=== PATIENT | female | born 1955 | race Caucasian/White ===

== ENCOUNTER 2017-01-21 11:44 | Emergency (ER) | payer OTHER ==
[2017-01-21 11:51] VITALS: BMI 34.0
[2017-01-21] MEDS ORDERED: KETOROLAC TROMETHAMINE 30 MG/1 ML VIAL ONE (12:07)
--- NOTE | 2017-01-21 12:08 | PDOC ---
History of Present Illness - General Chief Complaint: Pain, Acute Stated Complaint: BACK PAIN Time Seen by Provider: 01/21/17 12:08 History Source: Patient Exam Limitations: No Limitations - History of Present Illness Initial Comments: 01/21/17 12:32 Chief complaint: Right flank pain Patient is a 61-year-old female with a history of NIDDM, kidney stones who last had a kidney stone sometime last year who states sudden onset of right flank pain at 4:30 AM. He states it feels similar. Some nausea, no vomiting, no fever. Chest pain or shortness of breath. GENERAL/CONSTITUTIONAL: No fever, weakness. dizziness HEAD, EYES, EARS, NOSE AND THROAT: No change in vision. No ear pain or discharge. No sore throat. CARDIOVASCULAR: No chest pain RESPIRATORY: No shortness of breath or cough GASTROINTESTINAL: No pain, nausea, vomiting, diarrhea or constipation GENITOURINARY: +dysuria, + flank MUSCULOSKELETAL: No neck or back pain SKIN: No rash NEUROLOGIC: No headache, vertigo, loss of consciousness, or loss of sensation. GENERAL: The patient is awake, alert, and fully oriented, in no acute distress. HEAD: Normal with no signs of trauma. EYES: Pupils equal, round and reactive to light, sclera anicteric, conjunctiva clear. ENT: pharynx: no erythema, no exudate, uvula midline NECK: supple CHEST: clear, nontender, rr ABD: soft, nontender Back: Right CVAT EXTREMITIES: Normal range of motion, no edema. NEUROLOGICAL: Normal speech, normal gait. SKIN: Warm, Dry Past History - Past Medical History Allergies/Adverse Reactions: Allergies Allergy/AdvReac Type Severity Reaction Status Date / Time No Known Drug Allergies Allergy Verified 01/21/17 11:50 Home Medications: Ambulatory Orders Lisinopril [Prinivil] 10 mg PO DAILY 07/19/12 Atorvastatin Ca [Lipitor] 10 mg PO HS 01/21/16 Levothyroxine [Synthroid -] 50 mcg PO DAILY 01/21/16 Metformin HCl 500 mg PO BID 06/30/16 Cholecalciferol (Vitamin D3) [Vitamin D3] 2,000 unit PO DAILY 11/27/16 Famotidine [Pepcid -] 20 mg PO DAILY 11/27/16 Gabapentin [Neurontin -] 400 mg PO BID 11/27/16 Vitamin B Complex 1 each PO DAILY 11/27/16 Aspirin [ASA -] 325 mg PO DAILY@0800 tablet 12/01/16 Celecoxib [CeleBREX -] 200 mg PO BID capsule 12/01/16 Oxycodone HCl/Acetaminophen [Percocet 5-325 mg Tablet] 1 tab PO Q4H #20 tablet MDD 6 01/21/17 Anemia: No Asthma: No Cancer: No Cardiac Disorders: No CVA: No COPD: No CHF: No Dementia: No Diabetes: Yes (10 YRS) GI Disorders: No Disorders: Yes (kidney stones) HTN: Yes Hypercholesterolemia: Yes Liver Disease: No Seizures: No Thyroid Disease: Yes (HYPO) - Surgical History Abdominal Surgery: Yes (GASTRIC SLEEVE 04/18/16 LOST 40 LBS SO FAR) Appendectomy: No Cardiac Surgery: No Cholecystectomy: No Gastric Stapling: Yes (bipass) Lung Surgery: No Neurologic Surgery: No Orthopedic Surgery: Yes (RIGHT TKR 06/2016) - Immunization History Immunization Up to Date: Yes - Psycho/Social/Smoking Cessation Hx Anxiety: No Suicidal Ideation: No Smoking Status: No Smoking History: Never smoked Have you smoked in the past 12 months: No Number of Cigarettes Smoked Daily: 0 Hx Alcohol Use: No Drug/Substance Use Hx: No Substance Use Type: None Hx Substance Use Treatment: No *Physical Exam - Vital Signs Last Vital Signs Temp Pulse Resp BP Pulse Ox 97.2 F L 66 18 142/80 99 01/21/17 11:45 01/21/17 11:45 01/21/17 11:45 01/21/17 11:45 01/21/17 11:45 ED Treatment Course - LABORATORY CBC & Chemistry Diagram: 01/21/17 12:05 01/21/17 12:05 Medical Decision Making - Medical Decision Making 01/21/17 12:34 61-year-old female with right flank pain, in onset with history of kidney stones. No fever. We'll check labs, urine, hydrate, pain medicine, CT scan and reassess. 01/21/17 16:29 CT and labs show no acute findings, reviewed with Dr. Glass. Patient is comfortable Discharge patient home with small amount of pain medicine and she can follow-up with urologist tomorrow *DC/Admit/Observation/Transfer Diagnosis at time of Disposition: Right flank pain - Discharge Dispostion Disposition: HOME Condition at time of disposition: Stable Admit: No - Prescriptions Prescriptions: Oxycodone HCl/Acetaminophen [Percocet 5-325 mg Tablet] 1 tab PO Q4H #20 tablet MDD 6 - Patient Instructions Printed Discharge Instructions: DI for Flank Pain Additional Instructions: Make sure you drinking plenty of water You can take the Percocet one tablet every 4 hours as needed for pain Follow-up With your urologist tomorrow return to the ER if fever, vomiting or uncontrolled pain
[2017-01-21] MEDS ORDERED: SODIUM CHLORIDE 1,000 ML IV STA (12:10)
[2017-01-21] MEDS ORDERED: KETOROLAC TROMETHAMINE 30 MG/1 ML VIAL IVPUSH ONE (12:10)
[2017-01-21 12:23] LABS: EOSINOPHIL 3.1 % (0-4.5); MCH 29.6 pg (25.7-33.7); MCHC 33.4 g/dl (32.0-36.0); MEAN CELL VOLUME 88.6 fl (80-96); MEAN PLT VOLUME 7.7 fl (7.5-11.1); NEUTROPHILS 53.6 % (42.8-82.8); PLATELET COUNT 281 K/MM3 (134-434); RDW 13.4 % (11.6-15.6); WHITE BLOOD COUNT 6.3 K/mm3 (4.0-10.0)
[2017-01-21 12:28] LABS: URINE APPEARANCE CLEAR; URINE BILIRUBIN NEGATIVE (NEGATIVE); URINE BLOOD NEGATIVE (NEGATIVE); URINE COLOR YELLOW; URINE GLUCOSE (UA) NEGATIVE (NEGATIVE); URINE KETONE NEGATIVE (NEGATIVE); URINE LEUK ESTERASE NEGATIVE (NEGATIVE); URINE NITRITE NEGATIVE (NEGATIVE); URINE UROBILINOGEN NEGATIVE E.U./dl (0.2-1.0)
[2017-01-21 12:31] LABS: URINE PROTEIN 1+ (NEGATIVE)
[2017-01-21 12:33] LABS: URINE BACTERIA RARE /hpf (NONE SEEN); URINE MUCUS RARE; URINE RBC NONE SEEN /hpf (0-3); URINE WBC 1 /hpf (3-5)
[2017-01-21] MEDS ORDERED: morphine CARPU-JECT 4 MG/1 ML DISP.SYRIN IVPUSH ONE (12:33)
[2017-01-21] MEDS ORDERED: ONDANSETRON 4 MG/2 ML VIAL IVPUSH ONE (12:33)
[2017-01-21] MEDS ORDERED: morphine CARPU-JECT 4 MG/1 ML DISP.SYRIN ONE (12:40)
[2017-01-21] MEDS ORDERED: ONDANSETRON 4 MG/2 ML VIAL ONE (12:41)
[2017-01-21 12:46] LABS: ALBUMIN 3.9 g/dl (3.4-5.0); ALK PHOS 100 U/L (45-117); ANION GAP 7 (8-16); BILIRUBIN,TOTAL 0.3 mg/dL (0.2-1.0); CALCIUM 8.9 mg/dL (8.5-10.1); CO2 29 mmol/L (21-32); CREATININE 0.7 mg/dL (0.55-1.02); GLUCOSE,RANDOM 182 mg/dL (74-106); SGPT/ALT 24 U/L (12-78); TOT PROT 7.9 g/dl (6.4-8.2)
[2017-01-21 12:49] LABS: SGOT/AST 25 U/L (15-37)
[2017-01-21] MEDS ORDERED: HYDROmorphone HCL CARPU-JECT 1 MG/1 ML DISP.SYRIN IVPUSH ONE (13:52)
[2017-01-21] MEDS ORDERED: HYDROmorphone HCL CARPU-JECT 1 MG/1 ML DISP.SYRIN ONE (13:54)
[2017-01-21 14:47] VITALS: TEMP 98.6
[2017-01-21 16:37] VITALS: BP 110/68; PULSE 67
== END 2017-01-21 16:50 | disposition home or self-care (01) ==
LOC: JER 11:44
PROC: 3E033NZ Introduction of Analgesics, Hypnotics, Sedatives into Peripheral Vein, Percutaneous Approach (ICD-10-PCS; principal; 2017-01-21)
PROC: 3E0333Z Introduction of Anti-inflammatory into Peripheral Vein, Percutaneous Approach (ICD-10-PCS; 2017-01-21)
PROC: 3E033GC Introduction of Other Therapeutic Substance into Peripheral Vein, Percutaneous Approach (ICD-10-PCS; 2017-01-21)
DX: R10.31 Right lower quadrant pain (principal); Z87.442 Personal history of urinary calculi; I10 Essential (primary) hypertension; E11.9 Type 2 diabetes mellitus without complications; Z79.84 Long term (current) use of oral hypoglycemic drugs; E78.00 Pure hypercholesterolemia, unspecified; E03.9 Hypothyroidism, unspecified; Z98.84 Bariatric surgery status
CPT/HCPCS: 36415; 74176; 80053; 81003; 81015; 85025; 96374; 96375; 99285-25

== ENCOUNTER 2017-03-13 18:10 | Emergency (ER) | payer OTHER ==
[2017-03-13 18:15] VITALS: BMI 32.1
--- NOTE | 2017-03-13 19:22 | PDOC ---
History of Present Illness - General History Source: Patient, Family Exam Limitations: No Limitations - History of Present Illness Initial Comments: 03/13/17 19:40 The patient is a 61 year old female with significant past medical history of s/ p gastric sleeve (March 2016), hypertension, hyperlipidemia and diabetes who presents to the ED with generalized weakness and dizziness that began today. As per family, patient normally experiences generalized weakness and dizziness occasionally. Patient denies any pain, headache, or changes in vision. She also denies abdominal pain, nausea, vomiting, or diarrhea. According to the family, patient periodically does not eat as much and today she only ate once. Patient is compliant with her medications. The patient denies fever, chills, cough, SOB, chest pain, and palpitations. Allergies: NKDA Social History: No alcohol, tobacco, or drug use reported. Past Surgical History: s/p gastric sleeve (March 2016) and s/p right TKR (June 2016) PCP: Dr. Dakotah Puentes <Laquita Puentes - Last Filed: 03/13/17 21:01> - General History Source: Patient <Thompson Redmond - Last Filed: 03/13/17 23:05> - General Chief Complaint: Lightheaded Stated Complaint: LIGHTHEADED Time Seen by Provider: 03/13/17 19:18 Past History <Laquita Puentes - Last Filed: 03/13/17 21:01> - Past Medical History Anemia: No Asthma: No Cancer: No Cardiac Disorders: No CVA: No COPD: No CHF: No Dementia: No Diabetes: Yes (10 YRS) GI Disorders: No Disorders: Yes (kidney stones) HTN: Yes Hypercholesterolemia: Yes Liver Disease: No Seizures: No Thyroid Disease: Yes (HYPO) - Surgical History Abdominal Surgery: Yes (GASTRIC SLEEVE 04/18/16 LOST 40 LBS SO FAR) Appendectomy: No Cardiac Surgery: No Cholecystectomy: No Gastric Stapling: Yes (bipass) Lung Surgery: No Neurologic Surgery: No Orthopedic Surgery: Yes (RIGHT TKR 06/2016) - Immunization History Immunization Up to Date: Yes - Psycho/Social/Smoking Cessation Hx Anxiety: No Suicidal Ideation: No Smoking Status: No Smoking History: Never smoked Have you smoked in the past 12 months: No Number of Cigarettes Smoked Daily: 0 Information on smoking cessation initiated: No Hx Alcohol Use: No Drug/Substance Use Hx: No Substance Use Type: None Hx Substance Use Treatment: No <Thompson Redmond - Last Filed: 03/13/17 23:05> - Past Medical History Allergies/Adverse Reactions: Allergies Allergy/AdvReac Type Severity Reaction Status Date / Time No Known Drug Allergies Allergy Verified 03/13/17 18:14 Home Medications: Ambulatory Orders Lisinopril [Prinivil] 10 mg PO DAILY 07/19/12 Atorvastatin Ca [Lipitor] 10 mg PO HS 01/21/16 Levothyroxine [Synthroid -] 50 mcg PO DAILY 01/21/16 Metformin HCl 500 mg PO BID 06/30/16 Cholecalciferol (Vitamin D3) [Vitamin D3] 2,000 unit PO DAILY 11/27/16 Famotidine [Pepcid -] 20 mg PO DAILY 11/27/16 Gabapentin [Neurontin -] 400 mg PO BID 11/27/16 Vitamin B Complex 1 each PO DAILY 11/27/16 Aspirin [ASA -] 325 mg PO DAILY@0800 tablet 12/01/16 Celecoxib [CeleBREX -] 200 mg PO BID capsule 12/01/16 Oxycodone HCl/Acetaminophen [Percocet 5-325 mg Tablet] 1 tab PO Q4H PRN MDD 6 Review of Systems - Review of Systems Able to Perform ROS?: Yes Comments:: 03/13/17 19:40 CONSTITUTIONAL: +generalized weakness Absent: fever, no chills, no fatigue EYES: Absent: visual changes ENT: Absent: ear pain, no sore throat CARDIOVASCULAR: Absent: chest pain, no palpitations RESPIRATORY: Absent: cough, no SOB GI: Absent: abdominal pain, no nausea, no vomiting, no constipation, no diarrhea GENITOURINARY: Absent: dysuria, no frequency, no hematuria MUSCULOSKELETAL: Absent: back pain, no arthralgia, no myalgia SKIN: Absent: rash NEURO: +dizziness Absent: headache <Laquita Puentes - Last Filed: 03/13/17 21:01> *Physical Exam - Vital Signs Last Vital Signs Temp Pulse Resp BP Pulse Ox 97.5 F L 64 18 122/75 100 03/13/17 18:11 03/13/17 18:11 03/13/17 18:11 03/13/17 18:11 03/13/17 18:11 - Physical Exam Comments: 03/13/17 19:40 GENERAL: Well-appearing, well-nourished. No apparent distress. HEENT: Normocephalic, atraumatic. PERRL, EOM intact. CARDIOVASCULAR: Normal S1, S2. Regular rate and rhythm. PULMONARY: Clear to auscultation bilaterally. ABDOMEN: Soft, non-distended, non-tender. EXTREMITIES: Normal ROM in all four extremities. No gross deformities. SKIN: Warm, dry. No rash NEUROLOGICAL: No focal neurological deficits. <Laquita Puentes - Last Filed: 03/13/17 21:01> - Vital Signs Last Vital Signs Temp Pulse Resp BP Pulse Ox 97.5 F L 64 18 122/75 100 03/13/17 18:11 03/13/17 18:11 03/13/17 18:11 03/13/17 18:11 03/13/17 18:11 <Thompson Redmond - Last Filed: 03/13/17 23:05> Heart Score/ECG Review - ECG Impressions Comment:: 03/13/17 21:01 Sinus bradycardia with 1st degree AV block @58bpm Otherwise normal ECG <Laquita Puentes - Last Filed: 03/13/17 21:01> ED Treatment Course - LABORATORY CBC & Chemistry Diagram: 03/13/17 21:07 03/13/17 22:01 <Thompson Redmond - Last Filed: 03/13/17 23:05> Medical Decision Making - Medical Decision Making 03/13/17 23:03 Dr. Redmond: The scribe's documentation has been prepared under my direction and personally reviewed by me in its entirery. I confirm that the note above accurately reflects all work, treatment, procedures, and medical decision making performed by me. Pt magnesium was 1.6. One gram give. Pt has steady gait. All other labs were normal. Pt to be discharged. <Thompson Redmond - Last Filed: 03/13/17 23:05> *DC/Admit/Observation/Transfer - Attestations Scribe Attestion: 03/13/17 19:41 Documentation prepared by Laquita Puentes, acting as medical dermatologist for Thompson Redmond MD <Laquita Puentes - Last Filed: 03/13/17 21:01> - Discharge Dispostion Admit: No <Thompson Redmond - Last Filed: 03/13/17 23:05> Diagnosis at time of Disposition: Hypomagnesemia, Lightheadedness - Discharge Dispostion Disposition: HOME Condition at time of disposition: Stable - Referrals Referrals: Dakotah Puentes MD [Primary Care Provider] - - Patient Instructions Printed Discharge Instructions: DI for Dizziness-Nonvertigo
[2017-03-13] MEDS ORDERED: SODIUM CHLORIDE 1,000 ML IV STA (19:23)
[2017-03-13 21:26] LABS: BASOPHIL 0.5 % (0-2.0); EOSINOPHIL 1.8 % (0-4.5); MCH 28.5 pg (25.7-33.7); MEAN CELL VOLUME 86.5 fl (80-96); MEAN PLT VOLUME 8.3 fl (7.5-11.1); NEUTROPHILS 44.9 % (42.8-82.8); PLATELET COUNT 236 K/MM3 (134-434); RDW 13.5 % (11.6-15.6); WHITE BLOOD COUNT 6.9 K/mm3 (4.0-10.0)
[2017-03-13 21:43] LABS: INR 0.97 (0.82-1.09); PROTHROMBIN TIME (PATIENT) 10.7 SEC (9.98-11.88)
[2017-03-13 21:49] LABS: MAGNESIUM 1.6 mg/dL (1.8-2.4)
[2017-03-13] MEDS ORDERED: MAGNESIUM SULF 50% (8.12 MEQ/2 ML-1 GM VIAL) IVPB ONE (22:15)
[2017-03-13] MEDS ORDERED: MAGNESIUM SULF 50% (8.12 MEQ/2 ML-1 GM VIAL) ONE (22:34)
[2017-03-13 22:40] LABS: ALBUMIN 3.8 g/dl (3.4-5.0); ANION GAP 12 (8-16); BILIRUBIN,TOTAL 0.2 mg/dL (0.2-1.0); CALCIUM 8.9 mg/dL (8.5-10.1); CO2 25 mmol/L (21-32); CREATININE 0.7 mg/dL (0.55-1.02); GLUCOSE,RANDOM 115 mg/dL (74-106); SGOT/AST 19 U/L (15-37); SGPT/ALT 22 U/L (12-78); TOT PROT 7.9 g/dl (6.4-8.2)
[2017-03-13 22:42] LABS: ALK PHOS 102 U/L (45-117); TROPONIN I < 0.02 ng/ml (0.00-0.05)
[2017-03-13 22:49] LABS: URINE APPEARANCE CLEAR; URINE BILIRUBIN NEGATIVE (NEGATIVE); URINE BLOOD NEGATIVE (NEGATIVE); URINE COLOR STRAW; URINE GLUCOSE (UA) NEGATIVE (NEGATIVE); URINE KETONE NEGATIVE (NEGATIVE); URINE LEUK ESTERASE NEGATIVE (NEGATIVE); URINE NITRITE NEGATIVE (NEGATIVE); URINE PROTEIN NEGATIVE (NEGATIVE); URINE UROBILINOGEN NEGATIVE E.U./dl (0.2-1.0)
[2017-03-13 23:27] VITALS: BP 111/64; PULSE 61; TEMP 97.8
--- NOTE | 2017-03-14 08:12 | EKG ---
Test Reason : Blood Pressure : / mmHG Vent. Rate : 058 BPM Atrial Rate : 058 BPM P-R Int : 212 ms QRS Dur : 092 ms QT Int : 408 ms P-R-T Axes : 040 -04 033 degrees QTc Int : 400 ms SINUS BRADYCARDIA WITH 1ST DEGREE A-V BLOCK OTHERWISE NORMAL ECG WHEN COMPARED WITH ECG OF 23-APR-2016 19:41, SD INTERVAL HAS INCREASED T WAVE VARIATION Confirmed by SALENA MONTES DE OCA, OLINDA ([id number]) on 03/14/2017 8:12:03 AM Referred By: Confirmed By:OLINDA MARTINO MD
== END 2017-03-14 00:19 | disposition home or self-care (01) ==
LOC: JER 18:10
PROC: 3E033GC Introduction of Other Therapeutic Substance into Peripheral Vein, Percutaneous Approach (ICD-10-PCS; principal; 2017-03-13)
PROC: 3E0337Z Introduction of Electrolytic and Water Balance Substance into Peripheral Vein, Percutaneous Approach (ICD-10-PCS; 2017-03-13)
DX: E83.42 Hypomagnesemia (principal); E78.5 Hyperlipidemia, unspecified; E11.9 Type 2 diabetes mellitus without complications; I10 Essential (primary) hypertension; Z98.84 Bariatric surgery status
CPT/HCPCS: 36415; 80053; 81003; 82550; 82553; 83690; 83735; 84484; 85025; 85610; 93005; 93010; 96361; 96374; 99283-25

== ENCOUNTER 2017-05-03 13:20 | Emergency (ER) | payer OTHER ==
[2017-05-03 13:30] VITALS: BMI 32.5
--- NOTE | 2017-05-03 16:03 | PDOC ---
History of Present Illness - General Chief Complaint: Nausea Stated Complaint: NAUSEA, DIZZINESS Time Seen by Provider: 05/03/17 16:03 History Source: Patient, Family Exam Limitations: Language Barrier - History of Present Illness Initial Comments: 05/03/17 16:19 61 y/o female with hx/o htn, dm, hypercholesterol, hypothyroidism, oa c/o mild, intermittent nausea and lightheadedness for the past several hrs prior to arrival, which is constant, atraumatic, 5/10 in severity, and is not associated with food. patient has recenas prescribed by her orthopedic surgeon. Patient denie Patient repor during which she was diagnosed with hypomagnesemia. REVIEW OF SYSTEMS CONSTITUTIONAL: No fever, no chills, no fatigue EYES: No visual changes ENT: No ear pain, no sore throat CARDIOVASCULAR: No chest pain, no palpitations RESPIRATORY: No cough, no SOB GI: + abdominal pain, + nausea, no vomiting, no constipation, no diarrhea GENITOURINARY: No dysuria, no frequency, no hematuria MUSKULOSKELETAL: No backpain, no joint pain, no myalgias SKIN: No rash NEURO: No headache EXAMINATION CONSTITUTIONAL: Well-appearing; well-nourished; in no apparent distress HEAD: Normocephalic; atraumatic EYES: PERRL; EOM intact; conjunctiva are pink ENMT: External appears normal; mm-dry NECK: Supple; non-tender; no cervical lymphadenopathy CARD: Normal S1, S2; no murmurs, rubs, or gallops RESP: Normal chest excursion with respiration; breath sounds clear and equal bilaterally; no wheezes, rhonchi, or rales ABD: Soft, non-distended; minimal epig tender; no palpable organomegaly, no palpable hernias; no cva ttp EXT: Normal ROM in all four extremities; non-tender to palpation; distal pulses intact SKIN: Warm, dry, no rash NEURO: No focal neurological deficiencies. Past History - Past Medical History Allergies/Adverse Reactions: Allergies Allergy/AdvReac Type Severity Reaction Status Date / Time No Known Drug Allergies Allergy Verified 05/03/17 13:29 Home Medications: Ambulatory Orders Lisinopril [Prinivil] 10 mg PO DAILY 07/19/12 Atorvastatin Ca [Lipitor] 10 mg PO HS 01/21/16 Levothyroxine [Synthroid -] 50 mcg PO DAILY 01/21/16 Metformin HCl 500 mg PO BID 06/30/16 Famotidine [Pepcid -] 20 mg PO DAILY 11/27/16 Gabapentin [Neurontin -] 400 mg PO BID 11/27/16 Aspirin [ASA -] 325 mg PO DAILY@0800 tablet 12/01/16 Meloxicam 0 mg PO DAILY 05/03/17 Ondansetron [Zofran Odt -] 4 mg SL TID #21 od.tablet 05/03/17 Anemia: No Asthma: No Cancer: No Cardiac Disorders: No CVA: No COPD: No CHF: No Dementia: No Diabetes: Yes (10 YRS) GI Disorders: No Disorders: Yes (kidney stones) HTN: Yes Hypercholesterolemia: Yes Liver Disease: No Seizures: No Thyroid Disease: Yes (HYPO) - Surgical History Abdominal Surgery: Yes (GASTRIC SLEEVE 04/18/16 LOST 40 LBS SO FAR) Appendectomy: No Cardiac Surgery: No Cholecystectomy: No Gastric Stapling: Yes (bipass) Lung Surgery: No Neurologic Surgery: No Orthopedic Surgery: Yes (RIGHT TKR 06/2016) - Immunization History Immunization Up to Date: Yes - Psycho/Social/Smoking Cessation Hx Anxiety: No Suicidal Ideation: No Smoking Status: No Smoking History: Never smoked Have you smoked in the past 12 months: No Number of Cigarettes Smoked Daily: 0 Hx Alcohol Use: No Drug/Substance Use Hx: No Substance Use Type: None Hx Substance Use Treatment: No *Physical Exam - Vital Signs Last Vital Signs Temp Pulse Resp BP Pulse Ox 98 F 68 18 128/70 99 05/03/17 13:29 05/03/17 13:29 05/03/17 13:29 05/03/17 13:29 05/03/17 13:29 Heart Score/ECG Review - ECG Intrepretation Comment:: 05/03/17 18:20 62, sinus rhythm with fir block, axis-within no ST-T abnormalities, U-wais noted, abnormal ekg. ED Treatment Course - LABORATORY CBC & Chemistry Diagram: 05/03/17 16:49 05/03/17 16:49 Medical Decision Making - Medical Decision Making 05/03/17 20:18 Patient is a well-appearing 61-year-old female with history of gastric sleeve, diabetes, hypertension who presents with nausea and generalized weakness as well as mild epigastric discomfort after starting meloxicam. In the ER, patient is awake and alert, nontoxic-appearing. Serial abdominal evaluation revealed mild epigastric discomfort initial evaluation, and non-after administration of IV Pepcid. Patient is able tolerate by mouth currently. EKG shows no evidence of acute ischemia. CBC is within normal limit. CMP reveals moderate hypomagnesemia which has been supplemented by 2 g of mag sulfate. I do not suspect ACS at this time. Lipase is within normal limit do not suspect acute pancreatitis. Patient feels significantly improved and will be discharged. *DC/Admit/Observation/Transfer Diagnosis at time of Disposition: Nausea, Hypomagnesemia, Epigastric abdominal pain - Discharge Dispostion Disposition: HOME Condition at time of disposition: Stable - Prescriptions Prescriptions: Ondansetron [Zofran Odt -] 4 mg SL TID #21 od.tablet - Referrals Referrals: Dakotah Puentes MD [Primary Care Provider] - - Patient Instructions Printed Discharge Instructions: DI for Nausea -- Adult, DI for Epigastric Pain
[2017-05-03] MEDS ORDERED: FAMOTIDINE 20 MG/50 ML IVPB 50 ML IVPB ONE (16:14)
[2017-05-03] MEDS ORDERED: SODIUM CHLORIDE 500 ML IV STA (16:14)
[2017-05-03] MEDS ORDERED: ONDANSETRON 4 MG/2 ML VIAL IVPUSH ONE (16:14)
[2017-05-03] MEDS ORDERED: ONDANSETRON 4 MG/2 ML VIAL ONE (16:36)
[2017-05-03 17:19] LABS: BASOPHIL 0.5 % (0-2.0); EOSINOPHIL 1.9 % (0-4.5); MCH 27.6 pg (25.7-33.7); MCHC 32.3 g/dl (32.0-36.0); MEAN CELL VOLUME 85.6 fl (80-96); MEAN PLT VOLUME 8.4 fl (7.5-11.1); PLATELET COUNT 234 K/MM3 (134-434); WHITE BLOOD COUNT 6.7 K/mm3 (4.0-10.0)
[2017-05-03 17:44] LABS: INR 0.98 (0.82-1.09); PROTHROMBIN TIME (PATIENT) 10.8 SEC (9.98-11.88)
[2017-05-03 18:18] LABS: ALBUMIN 3.4 g/dl (3.4-5.0); ANION GAP 10 (8-16); BILIRUBIN,TOTAL 0.2 mg/dL (0.2-1.0); CO2 28 mmol/L (21-32); CREATININE 0.8 mg/dL (0.55-1.02); GLUCOSE,RANDOM 229 mg/dL (74-106); MAGNESIUM 1.7 mg/dL (1.8-2.4); SGOT/AST 17 U/L (15-37); SGPT/ALT 21 U/L (12-78); TOT PROT 7.1 g/dl (6.4-8.2)
[2017-05-03 18:21] LABS: ALK PHOS 87 U/L (45-117); TROPONIN I < 0.02 ng/ml (0.00-0.05)
[2017-05-03] MEDS ORDERED: MAGNESIUM SULF 50% (8.12 MEQ/2 ML-1 GM VIAL) IVPB ONE (18:31)
[2017-05-03] MEDS ORDERED: MAGNESIUM SULF 50% (8.12 MEQ/2 ML-1 GM VIAL) ONE (18:34)
[2017-05-03 19:07] LABS: URINE APPEARANCE CLEAR; URINE BILIRUBIN NEGATIVE (NEGATIVE); URINE BLOOD NEGATIVE (NEGATIVE); URINE COLOR STRAW; URINE GLUCOSE (UA) 2+ (NEGATIVE); URINE KETONE NEGATIVE (NEGATIVE); URINE NITRITE NEGATIVE (NEGATIVE); URINE PROTEIN NEGATIVE (NEGATIVE); URINE UROBILINOGEN NEGATIVE E.U./dl (0.2-1.0)
[2017-05-03 19:21] LABS: URINE LEUK ESTERASE TRACE (NEGATIVE)
[2017-05-03 19:22] LABS: URINE BACTERIA MANY /hpf (NONE SEEN); URINE MUCUS RARE; URINE RBC <1 /hpf (0-3); URINE WBC 2 /hpf (3-5)
[2017-05-03 20:53] VITALS: BP 104/63; PULSE 65; TEMP 98
--- NOTE | 2017-05-04 09:42 | EKG ---
Test Reason : Blood Pressure : / mmHG Vent. Rate : 062 BPM Atrial Rate : 062 BPM P-R Int : 218 ms QRS Dur : 086 ms QT Int : 406 ms P-R-T Axes : 020 006 019 degrees QTc Int : 412 ms SINUS RHYTHM WITH 1ST DEGREE A-V BLOCK WHEN COMPARED WITH ECG OF 13-MAR-2017 18:48, NO SIGNIFICANT CHANGE WAS FOUND Confirmed by MARILYN BUTT MD ([id number]) on 05/04/2017 9:41:46 AM Referred By: Confirmed By:MARILYN BUTT MD
== END 2017-05-03 21:00 | disposition home or self-care (01) ==
LOC: JER 13:20
PROC: 3E033GC Introduction of Other Therapeutic Substance into Peripheral Vein, Percutaneous Approach (ICD-10-PCS; principal; 2017-05-03)
PROC: 3E0337Z Introduction of Electrolytic and Water Balance Substance into Peripheral Vein, Percutaneous Approach (ICD-10-PCS; 2017-05-03)
DX: R11.0 Nausea (principal); E83.42 Hypomagnesemia; R10.13 Epigastric pain; I10 Essential (primary) hypertension; E11.9 Type 2 diabetes mellitus without complications; E78.00 Pure hypercholesterolemia, unspecified; E03.9 Hypothyroidism, unspecified; M19.90 Unspecified osteoarthritis, unspecified site; Z87.412 Personal history of vulvar dysplasia; Z98.84 Bariatric surgery status; Z96.651 Presence of right artificial knee joint; Z79.84 Long term (current) use of oral hypoglycemic drugs; Z79.82 Long term (current) use of aspirin
CPT/HCPCS: 36415; 80053; 81003; 81015; 82550; 83690; 83735; 84484; 85025; 85610; 93005; 93010; 99283-25

== ENCOUNTER 2017-06-28 19:59 | Emergency (ER) | payer OTHER ==
[2017-06-28 20:14] VITALS: BP 124/69; PULSE 73; TEMP 97.7; BMI 38.9
[2017-06-28] MEDS ORDERED: MECLIZINE HCL 25 MG TABLET (FP) PO ONE (20:48)
[2017-06-28] MEDS ORDERED: ONDANSETRON 4 MG TABLET PO ONE (20:48)
--- NOTE | 2017-06-28 20:51 | PDOC ---
Attending Attestation - HPI HPI: The patient is a 61 yo F with a PMHx significant for HTN, HLD, DM, chronic nausea, hypothyroid and hypomagnesemia who presents with nausea, dizziness and lightheadedness. The patient was seen on the of last month for same symptoms. The patient states her symptoms started this afternoon s/p eating. The patient states she feels like the room is spinning. The patient states her symptoms are not aggravated with movement or position. Also endorses mild bitemporal headache. She denies sob, diarrhea, blood in stool. The patient denies chest pain, palpitations and lightheadedness. - Physicial Exam PE: GENERAL: Well developed, well nourished. Awake and alert. No acute distress. HEENT: Normocephalic, atraumatic. PERRLA, EOMI. No conjunctival pallor. Sclera are non- icteric. Moist mucous membranes. Oropharynx is clear. NECK: Supple. Full ROM. No JVD. Carotid pulses 2+ and symmetric, without bruits. No thyromegaly. No lymphadenopathy. CARDIOVASCULAR: Regular rate and rhythm. No murmurs, rubs, or gallops. Distal pulses are 2+ and symmetric. PULMONARY: No evidence of respiratory distress. Lungs clear to auscultation bilaterally. No wheezing, rales or rhonchi. ABDOMINAL: Soft. Non-tender. Non-distended. No rebound or guarding. No organomegaly. Normoactive bowel sounds. MUSCULOSKELETAL Normal range of motion at all joints. No bony deformities or tenderness. No CVA tenderness. EXTREMITIES: No cyanosis. No clubbing. No edema. No calf tenderness. SKIN: Warm and dry. Normal capillary refill. No rashes. No jaundice. NEUROLOGICAL: No gross focal neurological deficits. PSYCHIATRIC: Cooperative. Good eye contact. Appropriate mood and affect. - Medical Decision Making Documentation prepared by Dianne Hinson, acting as medical fee clerk for Thompson Redmond MD/DO. <Dianne Hinson - Last Filed: 06/28/17 22:04> - Resident Resident Name: Gerald Claire - ED Attending Attestation I have performed the following: I have examined & evaluated the patient, The case was reviewed & discussed with the resident, I agree w/resident's findings & plan, Exceptions are as noted - Physicial Exam PE: 06/28/17 22:30 *Physical Exam General Appearance: Yes: Appropriately Dressed. No: Apparent Distress, Intoxicated HEENT: positive: EOMI, MUNA, Normal ENT Inspection, Normal Voice, TMs Normal, Pharynx Normal. negative: Pale Conjunctivae, Photophobia, Scleral Icterus (R), Scleral Icterus (L) Neck: positive: Trachea midline, Normal Thyroid, Supple. negative: Tender, Rigid, Carotid bruit, Stridor, Lymphadenopathy (R), Lymphadenopathy (L), Thyromegaly Respiratory/Chest: positive: Lungs Clear, Normal Breath Sounds. negative: Chest Tender, Respiratory Distress, Accessory Muscle Use, Labored Respiration, RES, Crackles, Rales, Rhonchi, Stridor, Wheezing, Dullness Cardiovascular: positive: Regular Rhythm, Regular Rate, S1, S2. negative: Edema , JVD, Murmur, Bradycardia, Tachycardia Vascular Pulses: Dorsalis-Pedis (R): 2+, Doralis-Pedis (L): 2+ Gastrointestinal/Abdominal: positive: Normal Bowel Sounds, Flat, Soft. negative : Tender, Organomegaly, Pulsatile Mass, Increased Bowel Sounds, Decreased BS, Distended, Guarding, Rebound, Hernia, Hepatomegaly, Spleenomegaly Lymphatic: negative: Adenopathy, Tenderness Musculoskeletal: positive: Normal Inspection. negative: CVA Tenderness, Decreased Range of Motion Extremity: positive: Normal Capillary Refill, Normal Inspection, Normal Range of Motion, Pelvis Stable. negative: Tender, Pedal Edema, Swelling, Erythema Integumentary: positive: Normal Color, Dry, Warm. 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 negative: EOM Palsy, Facial Droop, Sensory Deficit <BenjamínadrianaThompson - Last Filed: 06/28/17 22:35> Discharge Disposition - Discharge Dispostion Last Admission D/C Date: 12/01/16 Admit: No <BenjamínadrianaNgoziThompson - Last Filed: 06/28/17 22:35> - Diagnosis Nausea - Discharge Dispostion Disposition: HOME Condition at time of disposition: Stable - Referrals Referrals: Dakotah Puentes MD [Primary Care Provider] - - Patient Instructions Printed Discharge Instructions: DI for Nausea -- Adult Additional Instructions: Take medication as directed. Follow up with your doctor if symptoms don't improve. - Post Discharge Activity Heart Score/ECG Review #1 NSR @ 66 bpm. <Dianne Hinson - Last Filed: 06/28/17 22:04>
--- NOTE | 2017-06-28 21:00 | PDOC ---
History of Present Illness - General Chief Complaint: Lightheaded Stated Complaint: DIZZY AND FATIGUE Time Seen by Provider: 06/28/17 20:26 - History of Present Illness Initial Comments: 06/28/17 20:54 61 yo M with h/o HTN, HLD, DM , hypomagnesium, hypothyroidism who presents with nausea. Beginning at 1300 ( 06/28/17) develops nausea without vomiting, lightheadedness, dizziness, and headache. Has experienced symptoms every 30 minutes that last 1-2 minutes and resolve spontaneously. Dizziness described as sensation of spinning. dizziness is non positional with no alleviating or aggravating factors. GOMEZ is bitemporal, nonpulsating, with + phonophobia. Denies syncope, LOC, SOB, cough, Chest pain, urinary complaints, bowel changes / abdominal complaints, fevers/chills, numbness/tingling, weakness, vision change, or falls. Endorses adequate PO fluid intake 46 oz water today. Has taken 4mg SL Ondansetron x1 today with no relief. States that she frequently experiences these symptoms this year. Last seen at [facility] ED for similar complaints and negative workup. Past History - Past Medical History Allergies/Adverse Reactions: Allergies Allergy/AdvReac Type Severity Reaction Status Date / Time No Known Drug Allergies Allergy Verified 06/28/17 20:10 Home Medications: Ambulatory Orders Lisinopril [Prinivil] 10 mg PO DAILY 07/19/12 Atorvastatin Ca [Lipitor] 10 mg PO HS 01/21/16 Levothyroxine [Synthroid -] 50 mcg PO DAILY 01/21/16 Metformin HCl 500 mg PO BID 06/30/16 Famotidine [Pepcid -] 20 mg PO DAILY 11/27/16 Gabapentin [Neurontin -] 400 mg PO BID 11/27/16 Aspirin [ASA -] 325 mg PO DAILY@0800 tablet 12/01/16 Meloxicam 0 mg PO DAILY 05/03/17 Ondansetron [Zofran Odt -] 4 mg SL TID #21 od.tablet 05/03/17 Anemia: No Asthma: No Cancer: No Cardiac Disorders: No CVA: No COPD: No CHF: No Dementia: No Diabetes: Yes (10 YRS) GI Disorders: No Disorders: Yes (kidney stones) HTN: Yes Hypercholesterolemia: Yes Liver Disease: No Seizures: No Thyroid Disease: Yes (HYPO) - Surgical History Abdominal Surgery: Yes (GASTRIC SLEEVE 04/18/16 LOST 40 LBS SO FAR) Appendectomy: No Cardiac Surgery: No Cholecystectomy: No Gastric Stapling: Yes (bipass) Lung Surgery: No Neurologic Surgery: No Orthopedic Surgery: Yes (RIGHT TKR 06/2016) - Immunization History Immunization Up to Date: Yes - Psycho/Social/Smoking Cessation Hx Anxiety: No Suicidal Ideation: No Smoking Status: No Smoking History: Never smoked Have you smoked in the past 12 months: No Number of Cigarettes Smoked Daily: 0 Information on smoking cessation initiated: No Hx Alcohol Use: No Drug/Substance Use Hx: No Substance Use Type: None Hx Substance Use Treatment: No Review of Systems - Review of Systems Comments:: 06/28/17 21:02 GENERAL/CONSTITUTIONAL: No fever or chills. No weakness. HEAD, EYES, EARS, NOSE AND THROAT: No change in vision. No ear pain or discharge. No sore throat. CARDIOVASCULAR: No chest pain or shortness of breath RESPIRATORY: No cough, wheezing, or hemoptysis. GASTROINTESTINAL: +nausea. No vomiting, diarrhea or constipation. GENITOURINARY: No dysuria, frequency, or change in urination. MUSCULOSKELETAL: No joint or muscle swelling or pain. No neck or back pain. SKIN: No rash NEUROLOGIC:+headache, lightheadedness, and vertigo. No, loss of consciousness, or change in strength/sensation. ENDOCRINE: No increased thirst. No abnormal weight change HEMATOLOGIC/LYMPHATIC: No anemia, easy bleeding, or history of blood clots. ALLERGIC/IMMUNOLOGIC: No hives or skin allergy. *Physical Exam - Vital Signs Last Vital Signs Temp Pulse Resp BP Pulse Ox 97.7 F 73 20 124/69 99 06/28/17 20:10 06/28/17 20:10 06/28/17 20:10 06/28/17 20:10 06/28/17 20:10 - Physical Exam Comments: 06/28/17 21:04 GENERAL: Awake, alert, and fully oriented, in no acute distress HEAD: No signs of trauma, normocephalic, atraumatic. Non tender to palpation. EYES: PERRLA, EOMI, sclera anicteric, conjunctiva clear ENT: Auricles normal inspection, hearing grossly normal, nares patent, oropharynx clear without exudates. Moist mucosa NECK: Normal ROM, supple, no lymphadenopathy, JVD, or masses LUNGS: No distress, speaks full sentences, clear to auscultation bilaterally HEART: Regular rate and rhythm, normal S1 and S2, no murmurs, rubs or gallops, peripheral pulses normal and equal bilaterally. ABDOMEN: Soft, nontender, normoactive bowel sounds. No guarding, no rebound. No masses EXTREMITIES: Normal inspection, Normal range of motion, no edema. No clubbing or cyanosis. NEUROLOGICAL: Cranial nerves II through XII grossly intact. Normal speech, normal gait, no focal sensorimotor deficits. Absent dysmetria on finger to nose. Normal heel to alan, and rapid alternating movements. Non ataxic gait. SKIN: Warm, Dry, normal turgor, no rashes or lesions noted. Heart Score/ECG Review - Electrocardiogram EKG: Normal - Age Age: 45-65 - ECG Intrepretation Rhythm: Regular Rhythm - [place]: Normal - ECG Impressions Normal ECG: Yes Non-specific ST Elevation: No Ischemic Changes: No Bradycardia: No Torsades marcell Pointes: No WPW: No ED Treatment Course - LABORATORY CBC & Chemistry Diagram: 06/28/17 21:30 06/28/17 21:30 Medical Decision Making - Medical Decision Making 06/28/17 21:05 61 yo M with h/o HTN, HLD, DM , hypomagnesium, hypothyroidism who presents with nausea. Nausea without vomiting, lightheadedness, GOMEZ, and vertigo beginning at 1300 ( 06/28/17). Denies associated vomiting, or GI complaints. Denies recent trauma or fall. Pt. is hemodynamically stable and non ataxic on physical exam. Recently evaluated in ED for similar presentation ( 05/03) with negative diagnostic workup/evaluation. Low suspicion for central vertigo or CVA in setting of unremarkable physical exam and absent neuro deficits. Low suspicion for ACS/NH. Denies chest pain, SOB. DDx: BPPV, Hypomagnesium, ACS/NH ED Course: CBC, CMP, UA, EKG 06/28/17 22:10 EKG: Unremarkable 06/28/17 22:20 CBC, CMP, UA: Unremarkable *DC/Admit/Observation/Transfer Diagnosis at time of Disposition: Nausea alone - Discharge Dispostion Disposition: HOME Condition at time of disposition: Stable Admit: No - Referrals Referrals: Dakotah Puentes MD [Primary Care Provider] - - Patient Instructions Printed Discharge Instructions: DI for Nausea -- Adult Additional Instructions: Please return to ED if you experience severe fatigue, weakness, chest pain or worsening symptoms. Take Ondansetron as directed. Apply under tongue and let dissolve. Print Language: JAPANESE - Attestations Physician Attestion: 06/28/17 22:29 I, Dr. Gerald Claire, attest that this document has been prepared under my direction and personally reviewed by me in its entirety. I further attest, that it accurately reflects all work, treatment, procedures and medical decision -making performed by me.
[2017-06-28] MEDS ORDERED: MECLIZINE HCL 25 MG TABLET (FP) ONE (21:25)
[2017-06-28] MEDS ORDERED: ONDANSETRON *ODT* 4 MG TABLET ONE (21:25)
[2017-06-28 21:38] LABS: PLATELET COUNT 326 K/MM3 (134-434); RDW 13.9 % (11.6-15.6)
[2017-06-28 21:42] LABS: MCH 28.8 pg (25.7-33.7); MCHC 33.8 g/dl (32.0-36.0); MEAN CELL VOLUME 85.1 fl (80-96); MEAN PLT VOLUME 7.7 fl (7.5-11.1); WHITE BLOOD COUNT 7.7 K/mm3 (4.0-10.0)
[2017-06-28 21:45] LABS: URINE APPEARANCE CLEAR; URINE BILIRUBIN NEGATIVE (NEGATIVE); URINE BLOOD NEGATIVE (NEGATIVE); URINE COLOR LTYELLOW; URINE GLUCOSE (UA) NEGATIVE (NEGATIVE); URINE KETONE NEGATIVE (NEGATIVE); URINE LEUK ESTERASE NEGATIVE (NEGATIVE); URINE NITRITE NEGATIVE (NEGATIVE); URINE PROTEIN NEGATIVE (NEGATIVE); URINE UROBILINOGEN NEGATIVE mg/dL (0.2-1.0)
[2017-06-28 22:12] LABS: ALBUMIN 3.4 g/dl (3.4-5.0); ANION GAP 10 (8-16); BILIRUBIN,TOTAL 0.2 mg/dL (0.2-1.0); CO2 28 mmol/L (21-32); CREATININE 0.8 mg/dL (0.55-1.02); GLUCOSE,RANDOM 110 mg/dL (74-106); SGOT/AST 14 U/L (15-37); SGPT/ALT 23 U/L (12-78); TOT PROT 7.2 g/dl (6.4-8.2)
[2017-06-28 22:13] LABS: ALK PHOS 86 U/L (45-117)
[2017-06-28 22:17] LABS: PLATELET ESTIMATE ADEQUATE (NORMAL)
--- NOTE | 2017-06-29 09:25 | EKG ---
Test Reason : Blood Pressure : / mmHG Vent. Rate : 066 BPM Atrial Rate : 066 BPM P-R Int : 202 ms QRS Dur : 086 ms QT Int : 402 ms P-R-T Axes : 035 -09 026 degrees QTc Int : 421 ms NORMAL SINUS RHYTHM WITH 1ST DEGREE A-V BLOCK WHEN COMPARED WITH ECG OF 03-MAY-2017 16:25, NO SIGNIFICANT CHANGE WAS FOUND Confirmed by MARILYN BUTT MD ([id number]) on 06/29/2017 9:25:15 AM Referred By: Confirmed By:MARILYN BUTT MD
== END 2017-06-28 22:58 | disposition home or self-care (01) ==
LOC: JER 19:59
DX: R11.0 Nausea (principal); I10 Essential (primary) hypertension; E11.9 Type 2 diabetes mellitus without complications; E78.5 Hyperlipidemia, unspecified; E03.9 Hypothyroidism, unspecified; E83.42 Hypomagnesemia
CPT/HCPCS: 36415; 80053; 81003; 85025; 93005; 93010; 99282-25

== ENCOUNTER 2017-08-01 17:38 | Emergency (ER) | payer OTHER ==
[2017-08-01 17:49] VITALS: BP 143/78; PULSE 96; TEMP 98.3; BMI 34.2
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
[2017-08-01] MEDS ORDERED: oxyCODONE HCL 5 MG TABLET PO ONE (19:33)
[2017-08-01] MEDS ORDERED: oxyCODONE HCL 5 MG TABLET ONE (19:38)
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
[2017-08-01] MEDS ORDERED: METHOCARBAMOL 500 MG TABLET PO ONE (21:26)
[2017-08-01] MEDS ORDERED: METHOCARBAMOL 500 MG TABLET ONE (21:37)
== END 2017-08-01 21:46 | disposition home or self-care (01) ==
LOC: JER 17:38
DX: M54.5 Low back pain (principal); V43.51XA Car driver injured in collision with sport utility vehicle in traffic accident, initial encounter; Y92.414 Local residential or business street as the place of occurrence of the external cause; Y93.89 Activity, other specified; Y99.8 Other external cause status
CPT/HCPCS: 72070-TC; 72100-TC; 99281-25

== ENCOUNTER 2017-10-08 08:15 | Day surgery (SDC) | payer OTHER ==
[2017-10-03 12:47] VITALS: BMI 36.1
[2017-10-08] MEDS ORDERED: LEVOFLOXACIN 500 MG IVPB 500 MG/100 ML BAG IVPB ONE (09:59)
[2017-10-08] MEDS ORDERED: LEVOFLOXACIN 500 MG PREMIX BAG IVPB ONE (10:00)
[2017-10-08 11:49] VITALS: TEMP 97.8
[2017-10-08 14:29] VITALS: BP 106/60; PULSE 62
--- NOTE | 2017-10-08 15:31 | OP ---
Operative Note - Note: Operative Date: 10/08/17 Pre-Operative Diagnosis: left renal stone Operation: left eswl Findings: 7 mm x 7 mm left mid pole stone Post-Operative Diagnosis: Same as Pre-op Surgeon: Giovanny Patel Anesthesia: Fractional
--- NOTE | 2017-10-08 22:18 | OP ---
DATE OF OPERATION: 10/08/2017 PREOPERATIVE DIAGNOSIS: Left renal stones. POSTOPERATIVE DIAGNOSIS: Left renal stones. PROCEDURE: Extracorporeal shock wave lithotripsy. ATTENDING SURGEON: Deepika Patel M.D. ANESTHESIA: Fractional. OPERATION: Patient was brought in the operating room, placed in a supine position on the operating room table. Ultrasonography and fluoroscopy were performed. A 7 mm x 7 mm left mid pole stone was identified. The patient was then given anesthesia and preoperative Levaquin. The patient then had extracorporeal shock wave lithotripsy performed, 3000 impulses at 17 joules of power was administered the stone. Excellent fragmentation was noted under real time ultrasonography and fluoroscopy. No complications were noted. DISPOSITION: Patient to recovery room. DEEPIKA NOYOLA M.D. [id number]
== END 2017-10-08 14:00 | disposition home or self-care (01) ==
LOC: JASU-SURG 08:15
PROVIDERS: ATTEND Urology
PROC: 0TF4XZZ Fragmentation in Left Kidney Pelvis, External Approach (ICD-10-PCS; principal; 2017-10-08 09:30)
DX: N20.0 Calculus of kidney (principal)
CPT/HCPCS: 94760

== ENCOUNTER 2017-12-21 20:23 | Observation (INO) | payer OTHER ==
--- NOTE | 2017-12-21 20:28 | PDOC ---
Rapid Medical Evaluation Time Seen by Provider: 12/21/17 20:27 Medical Evaluation: Allergies Allergy/AdvReac Type Severity Reaction Status Date / Time No Known Drug Allergies Allergy Verified 10/08/17 09:06 12/21/17 20:27 I have performed a brief in-person evaluation of this patient. The patient presents with a chief complaint of: cp since 4pm today with sob, n/v +H/O iddm Pertinent physical exam findings:L/S CTAB, HR: RRR S1 S2 I have ordered the following:cbc,cmp,ua,cardiac, ekg The patient will proceed to the ED for further evaluation.
[2017-12-21] MEDS ORDERED: ASPIRIN 81 MG CHEWABLE TABLETS PO ONE (20:35)
[2017-12-21 20:45] LABS: BASO % 1.3 % (0-2.0); EOS % 1.5 % (0-4.5); HEMATOCRIT 34.8 % (32.4-45.2); HEMOGLOBIN 11.4 GM/dL (10.7-15.3); LYMPH % 39.9 % (8-40); MCH 27.3 pg (25.7-33.7); MCHC 32.8 g/dl (32.0-36.0); MEAN CELL VOLUME 83.3 fl (80-96); MEAN PLT VOLUME 7.7 fl (7.5-11.1); MONO % 7.1 % (3.8-10.2); NEUT % 50.2 % (42.8-82.8); PLATELET COUNT 269 K/MM3 (134-434); RBC 4.18 M/mm3 (3.60-5.2); RDW 14.3 % (11.6-15.6); WHITE BLOOD COUNT 7.6 K/mm3 (4.0-10.0)
[2017-12-21] MEDS ORDERED: ASPIRIN 81 MG CHEWABLE TABLETS ONE (20:45)
[2017-12-21 20:57] LABS: INR 0.94 (0.82-1.09); PROTHROMBIN TIME (PATIENT) 10.6 SEC (9.98-11.88)
[2017-12-21 21:09] LABS: ALBUMIN 3.9 g/dl (3.4-5.0); ANION GAP 6 (8-16); BILIRUBIN,TOTAL 0.3 mg/dL (0.2-1.0); BLOOD UREA NITROGEN 15 mg/dL (7-18); CALCIUM 8.8 mg/dL (8.5-10.1); CHLORIDE 104 mmol/L (98-107); CO2 27 mmol/L (21-32); CREATININE 0.8 mg/dL (0.55-1.02); GLUCOSE,RANDOM 96 mg/dL (74-106); SGPT/ALT 24 U/L (12-78); SODIUM 137 mmol/L (136-145)
[2017-12-21 21:12] LABS: ALK PHOS 91 U/L (45-117)
[2017-12-21 21:14] LABS: MAGNESIUM 1.7 mg/dL (1.8-2.4); POTASSIUM 4.3 mmol/L (3.5-5.1); SGOT/AST 21 U/L (15-37)
--- NOTE | 2017-12-21 21:17 | PDOC ---
History of Present Illness - General Chief Complaint: Chest Pain Stated Complaint: BODY PAIN Time Seen by Provider: 12/21/17 20:27 History Source: Patient Exam Limitations: No Limitations - History of Present Illness Initial Comments: 12/21/17 21:21 The patient is a 62F with a PMH of DM who presents to the ER with CP. The patient is with her son who also provides some of the history. The son states that the patient has had worsening CP since 1600 today. She was not doing any activities when the pain started. The pain is sharp, located along her L sternal border, does not radiate, and does not change with breathing. It has been constant and worsening and associated with nausea and 2 bouts of NBNB vomiting. She feels short of breath as well. Dr. 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 Past History - Past Medical History Allergies/Adverse Reactions: Allergies Allergy/AdvReac Type Severity Reaction Status Date / Time No Known Drug Allergies Allergy Verified 10/08/17 09:06 Home Medications: Ambulatory Orders Lisinopril [Prinivil] 10 mg PO DAILY 07/19/12 Atorvastatin Ca [Lipitor] 10 mg PO HS 01/21/16 Levothyroxine [Synthroid -] 50 mcg PO DAILY 01/21/16 Metformin HCl 500 mg PO BID 06/30/16 Famotidine [Pepcid -] 20 mg PO DAILY 11/27/16 Aspirin [ASA -] 325 mg PO DAILY@0800 tablet 12/01/16 Anemia: No Asthma: No Cancer: No Cardiac Disorders: No CVA: No COPD: No CHF: No Dementia: No Diabetes: Yes (10 YRS) GI Disorders: No Disorders: Yes (kidney stones) HTN: Yes Hypercholesterolemia: Yes Liver Disease: No Seizures: No Thyroid Disease: Yes (HYPO) - Surgical History Abdominal Surgery: Yes (GASTRIC SLEEVE 04/18/16) Appendectomy: No Cardiac Surgery: No Cholecystectomy: No Gastric Stapling: Yes (bipass) Lung Surgery: No Neurologic Surgery: No Orthopedic Surgery: Yes (RIGHT TKR 06/2016,L TKR 11/2016) - Immunization History Immunization Up to Date: Yes - Suicide/Smoking/Psychosocial Hx Smoking Status: No Smoking History: Never smoked Have you smoked in the past 12 months: No Number of Cigarettes Smoked Daily: 0 Information on smoking cessation initiated: No Hx Alcohol Use: No Drug/Substance Use Hx: No Substance Use Type: None Hx Substance Use Treatment: No Review of Systems - Review of Systems Able to Perform ROS?: Yes Comments:: 12/21/17 21:24 GENERAL/CONSTITUTIONAL: No fever or chills. No weakness. HEAD, EYES, EARS, NOSE AND THROAT: No change in vision. No ear pain or discharge. No sore throat. CARDIOVASCULAR: Positive for chest pain. No palpitations, or lightheadedness. RESPIRATORY: Positive for shortness of breath. No cough, wheezing, or hemoptysis. GASTROINTESTINAL: Positive for nausea and vomiting. No diarrhea, constipation, or abdominal pain. GENITOURINARY: No dysuria, frequency, hematuria, or change in urination. MUSCULOSKELETAL: No joint or muscle swelling or pain. No neck or back pain. SKIN: No rash or lesions. NEUROLOGIC: No headache, numbness, tingling, weakness, loss of consciousness, or change in strength/sensation. ENDOCRINE: No increased thirst. No abnormal weight change. HEMATOLOGIC/LYMPHATIC: No anemia, easy bleeding, or history of blood clots. ALLERGIC/IMMUNOLOGIC: No hives or skin allergy. Is the patient limited [place] proficient: No *Physical Exam - Vital Signs Last Vital Signs Temp Pulse Resp BP Pulse Ox 98.1 F 60 17 122/80 100 12/21/17 20:28 12/21/17 20:28 12/21/17 20:28 12/21/17 20:28 12/21/17 21:07 - Physical Exam Comments: 12/21/17 21:25 GENERAL: Well developed, well nourished, obese. Awake and alert. In moderate distress. HEENT: Normocephalic, atraumatic. Hearing grossly normal. Moist mucous membranes. PERRLA, EOMI. No conjunctival pallor. Sclera are non-icteric. NECK: Supple. Full ROM. No JVD. Carotid pulses 2+ and symmetric, without bruits. No thyromegaly. No lymphadenopathy. CARDIOVASCULAR: Regular rate and rhythm. No murmurs, rubs, or gallops. PULMONARY: No evidence of respiratory distress. Lungs clear to auscultation bilaterally. No wheezing, rales or rhonchi. ABDOMINAL: Soft. Non-tender. Non-distended. No rebound or guarding. MUSCULOSKELETAL: Normal range of motion at all joints. No bony deformities or tenderness. EXTREMITIES: No cyanosis. No clubbing. No edema. No calf tenderness. SKIN: Warm and dry. Normal capillary refill. No rashes. No jaundice. NEUROLOGICAL: Alert, awake, appropriate. Cranial nerves 2-12 intact. Normal speech. PSYCHIATRIC: Cooperative. Good eye contact. Appropriate mood and affect. Heart Score/ECG Review #1 ECG reviewed & interpreted by me at: 21:00 General ECG Interpretation: Sinus Rhythm, Normal Rate, Normal Intervals, No acute ischemic changes Compared to previous ECG there are: No significant change 12/21/17 21:27 NSR Rate 65 1st degree AV block QRS 78 QTc 401 ED Treatment Course - LABORATORY CBC & Chemistry Diagram: 12/21/17 20:30 12/21/17 20:30 - ADDITIONAL ORDERS Additional order review: Laboratory Results 12/21/17 12/21/17 12/21/17 20:34 20:30 20:30 PT with INR 10.60 INR 0.94 Sodium 137 Potassium 4.3 Chloride 104 Carbon Dioxide 27 Anion Gap 6 L BUN 15 Creatinine 0.8 Creat Clearance w eGFR > 60 POC Glucometer 122.46708 Random Glucose 96 Calcium 8.8 Magnesium 1.7 L Total Bilirubin 0.3 D AST 21 ALT 24 Alkaline Phosphatase 91 Creatine Kinase 173 Troponin I < 0.02 Total Protein 8.0 Albumin 3.9 12/21/17 12/21/17 20:34 20:30 RBC 4.18 MCV 83.3 MCHC 32.8 RDW 14.3 MPV 7.7 Neutrophils % 50.2 Lymphocytes % 39.9 Monocytes % 7.1 Eosinophils % 1.5 Basophils % 1.3 POC Glucometer 122.86172 - RADIOLOGY Radiology Studies Ordered: Category Date Time Status CHEST X-RAY PORTABLE* [RAD] Stat Radiology 12/21/17 20:35 Taken - Medications Given in the ED: ED Medications Discontinued Medications Generic Name Dose Route Start Last Admin Trade Name Freq PRN Reason Stop Dose Admin Aspirin 162 mg 12/21/17 20:35 12/21/17 20:55 Asa - PO 12/21/17 20:36 162 mg ONCE ONE Administration Medical Decision Making - Medical Decision Making 12/21/17 21:28 The patient is a 62F with a PMH of DM and gastric bypass who presents with acute onset CP. EKG unchanged, troponins negative. Preliminary read of XR negative. Will require admission for ACS workup. ASA given. Will also give zofran for nausea and pepcid for possible GI discomfort. 12/21/17 22:46 I have spoken to Dr. Puentes and he requests to admit to the service. Trop negative. CBC and CMP WNL. Will admit to tele for ACS workup. 12/21/17 23:38 Dr. Rahman accepts admission for tele obs. *DC/Admit/Observation/Transfer Diagnosis at time of Disposition: Atypical chest pain - Discharge Dispostion Condition at time of disposition: Stable Admit: Yes - Referrals - Patient Instructions - Post Discharge Activity
[2017-12-21] MEDS ORDERED: ONDANSETRON *ODT* 4 MG TABLET SL ONE (21:18)
[2017-12-21] MEDS ORDERED: RANITIDINE HCL 150 MG TABLET (FP) PO ONE (21:18)
[2017-12-21] MEDS ORDERED: ONDANSETRON 4 MG/2 ML VIAL IVPUSH ONE (21:20)
[2017-12-21] MEDS ORDERED: FAMOTIDINE 20 MG/50 ML IVPB 20 MG/50 ML MG IVPB ONE ×2 (21:20→21:32)
--- NOTE | 2017-12-21 21:25 | PDOC ---
Attending Attestation - Resident Resident Name: Sunil Mendoza - ED Attending Attestation I have performed the following: I have examined & evaluated the patient, The case was reviewed & discussed with the resident, I agree w/resident's findings & plan, Exceptions are as noted - HPI HPI: 12/21/17 21:23 62-year-old female history of diabetes, gastric sleeve presents with chest pain since 4 PM. The patient reports that she was in her usual state of health until 4 PM she felt a squeezing midsternal chest pain. Denies radiation. Endorses association shortness of breath. Denies vomiting, fevers, chills. Since then, patient has been reporting feeling generally weak. Patient reports she had a stress test sometime ago but does not resolve the results. Patient's military equipment specialist is Dr. Hoffman. - Physicial Exam PE: 12/21/17 21:24 GENERAL: Awake, alert, and fully oriented, in no acute distress. HEAD: No signs of trauma EYES: PERRLA, EOMI, sclera anicteric, conjunctiva clear ENT: Auricles normal inspection, hearing grossly normal, nares patent, NECK: Normal ROM, supple LUNGS: Breath sounds equal, clear to auscultation bilaterally. No wheezes, and no crackles HEART: Regular rate and rhythm, normal S1 and S2, no murmurs, rubs or gallops ABDOMEN: Soft, nontender, normoactive bowel sounds. No guarding, no rebound. No masses EXTREMITIES: Normal range of motion, no edema. No clubbing or cyanosis. No cords, erythema, or tenderness NEUROLOGICAL: Cranial nerves II through XII grossly intact. Normal speech SKIN: Warm, Dry, normal turgor, no rashes or lesions noted. - Medical Decision Making 12/21/17 21:24 Vital Signs Temp Pulse Resp BP Pulse Ox 98.1 F 60 17 122/80 100 12/21/17 20:28 12/21/17 20:28 12/21/17 20:28 12/21/17 20:28 12/21/17 21:07 We'll need to rule out myocardial infarction. Aspirin, chest x-ray, troponin. Labs reviewed. We'll admit the patient to the hospital for further evaluation. Heart Score/ECG Review - History History: Moderately suspicious - Electrocardiogram EKG: Non specific repolarization disturbance - Age Age: 45-65 - Risk Factors Risk Factors Heart Score: Yes Hx Diabetes, Yes Hx Obesity Based on the list above the patient has:: 1-2 risk factors - Troponin Troponin: </= normal limit - Score Heart Score - Total: 4 #1 ECG reviewed & interpreted by me at: 12:30 12/21/17 21:25 NSR 65 with 1st degree AV block, no std/julito, QTC 401 msec
[2017-12-21] MEDS ORDERED: ONDANSETRON 4 MG/2 ML VIAL ONE (21:32)
--- NOTE | 2017-12-21 22:55 | HP ---
CHIEF COMPLAINT: PCP: HISTORY OF PRESENT ILLNESS: 12/21/17 21:21 The patient is a 62F with a PMH of DM who presents to the ER with CP. The patient is with her son who also provides some of the history. The son states that the patient has had worsening CP since 1600 yesterday. She was not doing any activities when the pain started. The pain is sharp, located along her L sternal border, does not radiate, and does not change with breathing. It has been constant and worsening and associated with nausea and 2 bouts of NBNB vomiting. She feels short of breath as well. denies any sick contact Dr. Hoffman is historical site guide. ER course was notable for: (1)EKG (2)TROP negative (3)CXR , cbc , cmp WNL , Mg 1.7 Recent Travel:denies PAST MEDICAL HISTORY: IDDM , seasonal allergy, morbid obesity PAST SURGICAL HISTORY: gastric sleeve, B/L knee replacement . Social History: Smoking:denies Alcohol:denies Drugs: denies Family History: Allergies No Known Drug Allergies Allergy (Verified 10/08/17 09:06) HOME MEDICATIONS: Home Medications Medication Instructions Recorded Lisinopril [Prinivil] 10 mg PO DAILY 07/19/12 Atorvastatin Ca [Lipitor] 10 mg PO HS 01/21/16 Levothyroxine [Synthroid -] 50 mcg PO DAILY 01/21/16 Metformin HCl 500 mg PO BID 06/30/16 Famotidine [Pepcid -] 20 mg PO DAILY 11/27/16 Aspirin [ASA -] 325 mg PO DAILY@0800 tablet 12/01/16 REVIEW OF SYSTEMS CONSTITUTIONAL: + generalized weakness, malaise, denies loss of appetite, weight change HEENT: Absent: rhinorrhea, nasal congestion, throat pain, throat swelling, difficulty swallowing, mouth swelling, ear pain, eye pain, visual changes CARDIOVASCULAR: Absent: chest pain, syncope, palpitations, irregular heart rate, lightheadedness , peripheral edema RESPIRATORY: Absent: cough, shortness of breath, +dyspnea with exertion, orthopnea, wheezing , stridor, hemoptysis GASTROINTESTINAL: Absent: med epigastric abdominal pain, abdominal distension, nausea, vomiting, diarrhea, constipation, melena, hematochezia GENITOURINARY: Absent: dysuria, frequency, urgency, hesitancy, hematuria, flank pain, genital pain MUSCULOSKELETAL: Absent: myalgia, arthralgia, joint swelling, back pain, neck pain SKIN: Absent: rash, itching, pallor HEMATOLOGIC/IMMUNOLOGIC: Absent: easy bleeding, easy bruising, lymphadenopathy, frequent infections ENDOCRINE: Absent: unexplained weight gain, unexplained weight loss, heat intolerance, cold intolerance NEUROLOGIC: Absent: headache, focal weakness or paresthesias, dizziness, unsteady gait, seizure, mental status changes, bladder or bowel incontinence PSYCHIATRIC: Absent: anxiety, depression, suicidal or homicidal ideation, hallucinations. PHYSICAL EXAMINATION Vital Signs - 24 hr 12/21/17 12/21/17 20:28 21:07 Temperature 98.1 F Pulse Rate 60 Respiratory 17 Rate Blood Pressure 122/80 O2 Sat by Pulse 97 100 Oximetry (%) GENERAL: Awake, alert, and fully oriented, in no acute distress. HEAD: Normal with no signs of trauma. EYES: BRYANT, EOMI, sclera anicteric, conjunctiva clear. EMoist mucous membranes. NECK: , supple without lymphadenopathy, JVD, LUNGS:CTA B/L . No wheezes, and no crackles. No accessory muscle use. HEART: Regular rate and rhythm, normal S1 and S2 without murmur, rub or gallop. ABDOMEN: Soft, ND, NT, normoactive bowel sounds, no guarding, no rebound, no masses. MUSCULOSKELETAL: Normal range of motion at all joints. No bony deformities or tenderness. No CVA tenderness. UPPER EXTREMITIES: 2+ pulses, warm, well-perfused. No cyanosis. No clubbing. No peripheral edema. LOWER EXTREMITIES: 2+ pulses, warm, well-perfused. No calf tenderness. No peripheral edema. NEUROLOGICAL: Cranial nerves II-XII intact. Normal speech. Normal gait. PSYCHIATRIC: Cooperative. Good eye contact. Appropriate mood and affect. SKIN: Warm, dry, Laboratory Results - last 24 hr 12/21/17 12/21/17 12/21/17 20:30 20:30 20:30 WBC 7.6 RBC 4.18 Hgb 11.4 Hct 34.8 MCV 83.3 MCH 27.3 MCHC 32.8 RDW 14.3 Plt Count 269 MPV 7.7 Neutrophils % 50.2 Lymphocytes % 39.9 Monocytes % 7.1 Eosinophils % 1.5 Basophils % 1.3 PT with INR 10.60 INR 0.94 Sodium Cancelled Potassium Cancelled Chloride Cancelled Carbon Dioxide Cancelled Anion Gap Cancelled BUN Cancelled Creatinine Cancelled Creat Clearance w eGFR Cancelled POC Glucometer Random Glucose Cancelled Calcium Cancelled Magnesium Total Bilirubin Cancelled AST Cancelled ALT Cancelled Alkaline Phosphatase Cancelled Creatine Kinase Cancelled Creatine Kinase Index CK-MB (CK-2) Troponin I Cancelled Total Protein Cancelled Albumin Cancelled 12/21/17 12/21/17 20:30 20:34 WBC RBC Hgb Hct MCV MCH MCHC RDW Plt Count MPV Neutrophils % Lymphocytes % Monocytes % Eosinophils % Basophils % PT with INR INR Sodium 137 Potassium 4.3 Chloride 104 Carbon Dioxide 27 Anion Gap 6 L BUN 15 Creatinine 0.8 Creat Clearance w eGFR > 60 POC Glucometer 122.91999 Random Glucose 96 Calcium 8.8 Magnesium 1.7 L Total Bilirubin 0.3 D AST 21 ALT 24 Alkaline Phosphatase 91 Creatine Kinase 173 Creatine Kinase Index 1.1 CK-MB (CK-2) 1.774 Troponin I < 0.02 Total Protein 8.0 Albumin 3.9 CBC, BMP 12/21/17 20:30 NSR .Rate 65,1st degree AV block,QRS 78,QTc 401 CXR No acute process ASSESSMENT/PLAN: 62 year ld female with pmh IDDM , season allergy , morbid obesity S/p gastric sleeve presented with one day h/o chest pain , 5/10 local non radiating, increased with movement and palpation not related to excretion and was admitted to obs tele to R/O ACS # Chest pain most likely musculoskeletal , R/O ACS * EKG NSR * CXR clear lungs * trop negative * ASA in ED * Lipid profile * TSH * cardiology consult dr. Parra * flue swab negative * gambling monitor * ECHO * repeat EKG in AM * Ibuprofen for pain * # IDDM * Diabetic diet * ISS * BGM ACHS # Hypomagnesemia * Replinished * repeat in AM # Morbid obesity S/P sleeve surgery * BMI 39.0 * educated about life style modification # HTN * continue Lisinopril 10 mg daily po * # HLD * Continue statin 20 mg po daily # Hypothyroidism * TSH * continue synthroid home dose 50 mcg po daily # Sleep apnea * screen as out patient * o2 as needed to keep o2 >92 % * # seasonal allergy * monitor * flue swab * consider tamiflu if positive * # FEN * F: no fluids * E: hypomagnesia 1.7 replinished * N: Diabetic diet # Proph * DVT : SCDS , hep 5000 TID SQ * GI: continue pepsid home dose 20 mg po daily * # Dispo, * Admit to tele obs Visit type - Emergency Visit Emergency Visit: Yes ED Registration Date: 12/21/17 Care time: The patient presented to the Emergency Department on the above date and was hospitalized for further evaluation of their emergent condition. - New Patient This patient is new to me today: Yes Date on this admission: 12/22/17 - Critical Care Critical Care patient: No
[2017-12-21 23:06] LABS: URINE APPEARANCE CLEAR; URINE BILIRUBIN NEGATIVE (NEGATIVE); URINE BLOOD NEGATIVE (NEGATIVE); URINE COLOR LTYELLOW; URINE GLUCOSE (UA) NEGATIVE (NEGATIVE); URINE KETONE NEGATIVE (NEGATIVE); URINE LEUK ESTERASE NEGATIVE (NEGATIVE); URINE NITRITE NEGATIVE (NEGATIVE); URINE PROTEIN NEGATIVE (NEGATIVE); URINE UROBILINOGEN NEGATIVE mg/dL (0.2-1.0)
[2017-12-22] MEDS ORDERED: MAGNESIUM SULF 50% (8.12 MEQ/2 ML-1 GM VIAL) IVPB ONE (00:07)
[2017-12-22] MEDS ORDERED: IBUPROFEN 600 MG TABLET (FP) PO PRN (00:14)
[2017-12-22] MEDS ORDERED: MAGNESIUM SULF 50% (8.12 MEQ/2 ML-1 GM VIAL) ONE (00:56)
--- NOTE | 2017-12-22 05:44 | PN ---
Teaching Attending Note Name of Resident: Gary Rueda ATTENDING PHYSICIAN STATEMENT I saw and evaluated the patient. I reviewed the resident's note and discussed the case with the resident. I agree with the resident's findings and plan as documented. SUBJECTIVE: OBJECTIVE: ASSESSMENT AND PLAN: 62 y/o female presented for atypical chest pain - the pain is located on the left side that is worse with movement of the hand and shoulder, and with deep breath. patient stated that she does not get chest discomfort with exertion she does have SOB but she contribute that to her asthma she is admitted to obs tele to r.o ACS trend troponin repeat ECG cardiology consultation c/w same home medication flu swab
[2017-12-22] MEDS ORDERED: LEVOTHYROXINE NA 25 MCG TABLET (FP) ONE (06:13)
[2017-12-22] MEDS ORDERED: HEPARIN NA (PORCINE) 5,000 UNITS/ML 1ML VIAL ONE (06:13)
[2017-12-22] MEDS: LEVOTHYROXINE NA 50 MCG TABLET (FP) PO SCH (06:33)
[2017-12-22] MEDS: HEPARIN NA (PORCINE) 5,000 UNITS/ML 1ML VIAL SQ SCH ×3 (06:33→21:41)
[2017-12-22] MEDS ORDERED: INSULIN (NOVOLOG) ASPART 100 UNITS/ML 10ML VIAL ONE (06:35)
[2017-12-22] MEDS: INSULIN SLIDING SCALE (NOVOLOG) 1 VIAL SQ SCH ×4 (06:36→21:42)
[2017-12-22 06:39] LABS: ALLENS TEST POSITIVE; ARTERIAL BLOOD GAS BASE EXCESS 2.2 meq/l (-2-2); ARTERIAL BLOOD GAS PCO2 45.1 mmHg (35-45); ARTERIAL BLOOD GAS pH 7.39 (7.35-7.45)
[2017-12-22 06:40] LABS: ARTERIAL BLOOD GAS PO2 33.2 mmHg (80-100)
[2017-12-22 06:41] LABS: ARTERIAL BLD GAS O2 SATURATION 60.3 % (90-98.9)
[2017-12-22 07:03] LABS: BASO % 0.4 % (0-2.0); EOS % 1.8 % (0-4.5); HEMATOCRIT 34.8 % (32.4-45.2); HEMOGLOBIN 11.2 GM/dL (10.7-15.3); LYMPH % 39.3 % (8-40); MCH 27.2 pg (25.7-33.7); MCHC 32.3 g/dl (32.0-36.0); MEAN CELL VOLUME 84.2 fl (80-96); MONO % 7.9 % (3.8-10.2); NEUT % 50.6 % (42.8-82.8); PLATELET COUNT 257 K/MM3 (134-434); RBC 4.13 M/mm3 (3.60-5.2); RDW 14.5 % (11.6-15.6); WHITE BLOOD COUNT 6.4 K/mm3 (4.0-10.0)
[2017-12-22 07:30] LABS: ALBUMIN 3.7 g/dl (3.4-5.0); ANION GAP 8 (8-16); BILIRUBIN,TOTAL 0.2 mg/dL (0.2-1.0); BLOOD UREA NITROGEN 15 mg/dL (7-18); CALCIUM 8.9 mg/dL (8.5-10.1); CHLORIDE 103 mmol/L (98-107); CO2 28 mmol/L (21-32); CREATININE 0.8 mg/dL (0.55-1.02); GLUCOSE,RANDOM 140 mg/dL (74-106); MAGNESIUM 1.9 mg/dL (1.8-2.4); PHOSPHOROUS 4.4 mg/dL (2.5-4.9); POTASSIUM 4.3 mmol/L (3.5-5.1); SGOT/AST 16 U/L (15-37); SGPT/ALT 21 U/L (12-78); SODIUM 139 mmol/L (136-145); TOT PROT 7.5 g/dl (6.4-8.2)
[2017-12-22 07:31] LABS: ALK PHOS 83 U/L (45-117)
[2017-12-22] MEDS ORDERED: ASPIRIN 325 MG TABLET PO SCH (08:00)
[2017-12-22] MEDS ORDERED: ASPIRIN 325 MG TABLET ONE (08:11)
--- NOTE | 2017-12-22 09:38 | CON.CARD ---
Consult Consult Specialty:: cardio Referred by:: hospitalist Reason for Consultation:: chest pain - History of Present Illness Chief Complaint: cp History of Present Illness: 62 female here with CP. family translates: began to gradually notice pain under L breast yesterday. the pain radiated around breast towards L sternal border. no other radiation. no sob/diaph/LH with this. no pleuritic, positional component noted. pain persisted all day and into this am--still present today but feels much milder. denies any cp with exertion/walking. c/o GOMEZ this am. says she had the same CP sx few years ago, which resolved on its own at that time. was here 2016 with abd pain/nausea and had MPI then which was normal. she reports that she had more recent stress test done at [facility] (dr hernandez) since then , also normal. PMH: DM HPL ? HTN - Past Medical History Cardio/Vascular: Yes: HTN, Hyperlipdemia Endocrine: Yes: Diabetes Mellitus - Past Surgical History Past Surgical History: Yes: None - Alcohol/Substance Use Hx Alcohol Use: No - Smoking History Smoking history: Never smoked Have you smoked in the past 12 months: No Aproximately how many cigarettes per day: 0 - Social History ADL: Independent History of Recent Travel: No Home Medications - Allergies Allergies/Adverse Reactions: Allergies Allergy/AdvReac Type Severity Reaction Status Date / Time No Known Drug Allergies Allergy Verified 10/08/17 09:06 - Home Medications Home Medications: Ambulatory Orders Lisinopril [Prinivil] 10 mg PO DAILY 07/19/12 Atorvastatin Ca [Lipitor] 10 mg PO HS 01/21/16 Levothyroxine [Synthroid -] 50 mcg PO DAILY 01/21/16 Metformin HCl 500 mg PO BID 06/30/16 Famotidine [Pepcid -] 20 mg PO DAILY 11/27/16 Aspirin [ASA -] 325 mg PO DAILY@0800 tablet 12/01/16 Family Disease History - Family Disease History Family Disease History: CA: Brother (colon) Review of Systems - Review of Systems Constitutional: denies: Chills, Fever Eyes: denies: Eye Pain HENT: denies: Nasal Congestion Neck: denies: Stiffness Cardiovascular: denies: Palpitations Respiratory: denies: Orthopnea, PND Gastrointestinal: denies: Diarrhea, Rectal Bleeding Genitourinary: denies: Burning, Hematuria Musculoskeletal: denies: Muscle Pain Integumentary: denies: Rash Neurological: denies: Numbness, Seizure, Syncope Endocrine: denies: Excessive Sweating Hematology/Lymphatic: denies: Excessive Bleeding Vital Signs: Vital Signs Temperature 98.5 F 12/22/17 06:45 Pulse Rate 73 12/22/17 09:07 Respiratory Rate 15 12/22/17 09:07 Blood Pressure 105/61 12/22/17 09:07 O2 Sat by Pulse Oximetry (%) 99 12/22/17 09:07 Constitutional: Yes: No Distress, Obese Eyes: No: Sclera Icterus HENT: No: Nasal Congestion Neck: No: Decreased ROM Respiratory: Yes: CTA Bilaterally. No: Accessory Muscle Use, Rales, Wheezes Gastrointestinal: Yes: Normal Bowel Sounds. No: Distention, Hepatomegaly, Palpable Mass, Tenderness Cardiovascular: Yes: Regular Rate and Rhythm JVD: No Carotid Bruit: No PMI: Non-Displaced Heart Sounds: Yes: S1, S2. No: Gallop Murmur: No: Systolic Murmur, Diastolic Murmur Musculoskeletal: Yes: Other (No kyphosis) Extremities: No: Cold, Cyanosis Edema: No Peripheral Pulses: 2+ Left Carotid, 2+ Right Carotid, 2+ Left Doralis Pedis, 2+ Right Dorsalis Pedis Integumentary: No: Jaundice Neurological: Yes: Alert, Oriented (x3) Psychiatric: No: Agitated - Other Data Labs, Other Data: CBC, BMP 12/22/17 06:30 12/22/17 06:30 INR, PTT INR 0.94 (0.82-1.09) 12/21/17 20:30 Troponin, BNP 12/21/17 12/21/17 12/22/17 20:30 20:30 06:30 Troponin I Cancelled < 0.02 < 0.02 Troponin, BNP 12/21/17 12/21/17 12/22/17 20:30 20:30 06:30 Troponin I Cancelled < 0.02 < 0.02 Laboratory Tests 12/21/17 12/22/17 12/22/17 20:30 06:15 06:30 WBC 6.4 Hgb 11.2 Plt Count 257 ABG pH 7.39 ABG pCO2 at Pt Temp 45.1 H ABG pO2 at Pt Temp 33.2 L* D O2 Delivery Device Room air Sodium Potassium Carbon Dioxide BUN Creatinine Hemoglobin A1c % AST ALT Troponin I < 0.02 Triglycerides Cholesterol Total LDL Cholesterol HDL Cholesterol 12/22/17 12/22/17 12/22/17 06:30 06:30 06:30 WBC Hgb Plt Count ABG pH ABG pCO2 at Pt Temp ABG pO2 at Pt Temp O2 Delivery Device Sodium 139 Potassium 4.3 Carbon Dioxide 28 BUN 15 Creatinine 0.8 Hemoglobin A1c % 8.2 H AST 16 ALT 21 Troponin I < 0.02 Triglycerides Cholesterol Total LDL Cholesterol HDL Cholesterol 12/22/17 06:30 WBC Hgb Plt Count ABG pH ABG pCO2 at Pt Temp ABG pO2 at Pt Temp O2 Delivery Device Sodium Potassium Carbon Dioxide BUN Creatinine Hemoglobin A1c % AST ALT Troponin I Triglycerides 155 Cholesterol 144 Total LDL Cholesterol 74 HDL Cholesterol 53 Assessment/Plan ECG 12/21: NSR, baseline wander artifact. normal axis. no path q's. NSTWA v2 ( unchanged vs prior). q wave in v4 with NSTWA which is new vs prior 07/05 ECG 12/22: same as 12/21 CXR: clear lungs/pleura MPI 2016 (pers): no STs. normal perfusion. nl EF. Echo 2016: nl LVSF. nl RV. nl LA. valve fxn WNL. chest pain: -sx's are non-anginal, occurring at rest and persisting for the past 24 hrs. -trop neg x 2, ECG with nonspecific finding of new q wave in V4 only--? lead positioning. -Sats 97-100% on RA consistently here, suspect PO2 on "ABG" was actually venous specimen. continue to observe sats trend -pt is tender to palpation under L breast and along L medial breast margin, i.e. over area of her chief compliant--AND STATES THIS EXACTLY REPRODUCES THE QUALITY OF HER PAIN YESTERDAY. -she also states the pain quality is same as episode she had few yrs ago, despite 2 negative stress tests since then. -the presence of unremitting pain for 24 hrs with normal cardiac enzymes essentially rules out myocardial ischemic pain. -given the new ekg findings in hi risk pt (+DM), rec monitoring overnight in hospital--if remains clinically stable, can d/c in AM with outpt f/u with dr parsons in office -prn NSAIDs trial for the pain -change home ASA regimen to 81 mg only, no need for 325 HTN: -bp's low to normal here. -cont home MARGO (? for DM renal protection), observe trend HPL: -cont home statin (or dose equivalent) DM: -per hospitalist
[2017-12-22] MEDS: LISINOPRIL 10 MG TABLET (FP) PO SCH (10:26)
[2017-12-22] MEDS: RANITIDINE HCL 150 MG TABLET (FP) PO SCH (10:26)
[2017-12-22] MEDS ORDERED: IBUPROFEN 400 MG TABLET (FP) PO PRN (11:26)
[2017-12-22] MEDS ORDERED: ASPIRIN 81 MG CHEWABLE TABLETS PO SCH (11:26)
--- NOTE | 2017-12-22 13:06 | EKG ---
Test Reason : Blood Pressure : / mmHG Vent. Rate : 065 BPM Atrial Rate : 065 BPM P-R Int : 214 ms QRS Dur : 078 ms QT Int : 386 ms P-R-T Axes : 034 -10 039 degrees QTc Int : 401 ms SINUS RHYTHM WITH 1ST DEGREE A-V BLOCK POOR R WAVE PROGRESSION ABNORMAL ECG WHEN COMPARED WITH ECG OF 28-JUN-2017 22:00, NOTE CHANGE IN R-WAVE PROGRESSION Confirmed by PATRICK MONTES DE OCA, JANNA ([id number]) on 12/22/2017 1:06:15 PM Referred By: Confirmed By:JANNA NGUYEN MD
[2017-12-22 14:19] VITALS: BMI 38.1
--- NOTE | 2017-12-22 17:30 | PN ---
Physical Exam: SUBJECTIVE: Patient seen and examined Patient is feeling better with no acute distress. Came in for having a chest pain denies any further pain. OBJECTIVE: Vital Signs Temperature 97.3 F L 12/22/17 13:00 Pulse Rate 69 12/22/17 13:00 Respiratory Rate 15 12/22/17 13:00 Blood Pressure 112/60 12/22/17 13:00 O2 Sat by Pulse Oximetry (%) 99 12/22/17 09:07 GENERAL: The patient is awake, alert, and fully oriented, in no acute distress. HEAD: Normal with no signs of trauma. EYES: PERRL, extraocular movements intact, sclera anicteric, conjunctiva clear. ENT: Ears normal, nares patent, oropharynx clear without exudates, moist mucous membranes. NECK: Trachea midline, full range of motion, supple. LUNGS: Breath sounds equal, clear to auscultation bilaterally, no wheezes, no crackles, no accessory muscle use. HEART: Regular rate and rhythm, S1, S2 without murmur, rub or gallop. ABDOMEN: Soft, nontender, nondistended, normoactive bowel sounds, no guarding, no rebound, no hepatosplenomegaly, no masses. EXTREMITIES: 2+ pulses, warm, well-perfused, no edema. NEUROLOGICAL: Cranial nerves II through XII grossly intact. Normal speech, gait not observed. PSYCH: Normal mood, normal affect. SKIN: Warm, dry, normal turgor, no rashes or lesions noted CBCD WBC 6.4 K/mm3 (4.0-10.0) 12/22/17 06:30 RBC 4.13 M/mm3 (3.60-5.2) 12/22/17 06:30 Hgb 11.2 GM/dL (10.7-15.3) 12/22/17 06:30 Hct 34.8 % (32.4-45.2) 12/22/17 06:30 MCV 84.2 fl (80-96) 12/22/17 06:30 MCHC 32.3 g/dl (32.0-36.0) 12/22/17 06:30 RDW 14.5 % (11.6-15.6) 12/22/17 06:30 Plt Count 257 K/MM3 (134-434) 12/22/17 06:30 MPV 8.0 fl (7.5-11.1) 12/22/17 06:30 CMP Sodium 139 mmol/L (136-145) 12/22/17 06:30 Potassium 4.3 mmol/L (3.5-5.1) 12/22/17 06:30 Chloride 103 mmol/L (98-107) 12/22/17 06:30 Carbon Dioxide 28 mmol/L (21-32) 12/22/17 06:30 Anion Gap 8 (8-16) 12/22/17 06:30 BUN 15 mg/dL (7-18) 12/22/17 06:30 Creatinine 0.8 mg/dL (0.55-1.02) 12/22/17 06:30 Creat Clearance w eGFR > 60 (>60) 12/22/17 06:30 Random Glucose 140 mg/dL (74-106) H 12/22/17 06:30 Calcium 8.9 mg/dL (8.5-10.1) 12/22/17 06:30 Total Bilirubin 0.2 mg/dL (0.2-1.0) D 12/22/17 06:30 AST 16 U/L (15-37) 12/22/17 06:30 ALT 21 U/L (12-78) 12/22/17 06:30 Alkaline Phosphatase 83 U/L (45-117) 12/22/17 06:30 Total Protein 7.5 g/dl (6.4-8.2) 12/22/17 06:30 Albumin 3.7 g/dl (3.4-5.0) 12/22/17 06:30 CARDIAC ENZYMES Creatine Kinase 173 IU/L (26-192) 12/21/17 20:30 Troponin I < 0.02 ng/ml (0.00-0.05) 12/22/17 06:30 Current Medications Generic Name Dose Route Start Last Admin Trade Name Freq PRN Reason Stop Dose Admin Aspirin 81 mg 12/22/17 11:26 Asa - PO DAILY@0800 [facility] Atorvastatin Calcium 10 mg 12/22/17 22:00 Lipitor - PO HS [facility] Heparin Sodium (Porcine) 5,000 unit 12/22/17 06:00 12/22/17 13:22 Heparin - SQ 5,000 unit TID [facility] Administration Insulin Aspart 1 vial 12/22/17 07:00 12/22/17 12:43 Novolog Vial Sliding Scale - SQ 4 units ACHS [facility] Administration Protocol Levothyroxine Sodium 50 mcg 12/22/17 07:00 12/22/17 06:33 Synthroid - PO 50 mcg DAILY@0700 [facility] Administration Lisinopril 10 mg 12/22/17 10:00 12/22/17 10:26 Prinivil PO 10 mg DAILY [facility] Administration Ranitidine HCl 150 mg 12/22/17 10:00 12/22/17 10:26 Zantac - PO 150 mg DAILY [facility] Administration Home Medications Medication Instructions Recorded Lisinopril [Prinivil] 10 mg PO DAILY 07/19/12 Atorvastatin Ca [Lipitor] 10 mg PO HS 01/21/16 Levothyroxine [Synthroid -] 50 mcg PO DAILY 01/21/16 Metformin HCl 500 mg PO BID 06/30/16 Famotidine [Pepcid -] 20 mg PO DAILY 11/27/16 Aspirin [ASA -] 325 mg PO DAILY@0800 tablet 12/01/16 A/P: Patient is a 62 y/o female presented to ED. for having for atypical chest pain. # Acute Chest pain r/o ACS trend troponin , repeat ECG. cadio consult appreciated. DVt Px; Scds, heparin Visit type - Emergency Visit Emergency Visit: Yes ED Registration Date: 12/21/17 Care time: The patient presented to the Emergency Department on the above date and was hospitalized for further evaluation of their emergent condition. - New Patient This patient is new to me today: Yes Date on this admission: 12/22/17 - Critical Care Critical Care patient: No
[2017-12-22] MEDS ORDERED: ATORVASTATIN CA 10 MG TABLET (FP) PO SCH (22:00)
[2017-12-23] MEDS: HEPARIN NA (PORCINE) 5,000 UNITS/ML 1ML VIAL SQ SCH (06:29)
[2017-12-23] MEDS: INSULIN SLIDING SCALE (NOVOLOG) 1 VIAL SQ SCH ×2 (06:29→11:28)
[2017-12-23] MEDS: LEVOTHYROXINE NA 50 MCG TABLET (FP) PO SCH (06:29)
[2017-12-23] MEDS: RANITIDINE HCL 150 MG TABLET (FP) PO SCH (09:47)
[2017-12-23] MEDS: LISINOPRIL 10 MG TABLET (FP) PO SCH (09:47)
[2017-12-23] MEDS ORDERED: PT OWN MED DRAWER 7, Y5N ONE (11:09)
--- NOTE | 2017-12-23 11:29 | PN ---
Progress Note, Physician Chief Complaint: cp History of Present Illness: cp resolved completely. no sob, palpit, leg swelling - Current Medication List Current Medications: Active Medications Aspirin (Asa -) 81 mg PO DAILY@0800 [facility] Last Admin: 12/23/17 09:47 Dose: 81 mg Atorvastatin Calcium (Lipitor -) 10 mg PO HS [facility] Last Admin: 12/22/17 21:41 Dose: 10 mg Heparin Sodium (Porcine) (Heparin -) 5,000 unit SQ TID [facility] Last Admin: 12/23/17 06:29 Dose: 5,000 unit Ibuprofen (Motrin -) 400 mg PO Q6H PRN PRN Reason: PAIN Insulin Aspart (Novolog Vial Sliding Scale -) 1 vial SQ ACHS [facility] PRN Reason: Protocol Last Admin: 12/23/17 06:29 Dose: Not Given Levothyroxine Sodium (Synthroid -) 50 mcg PO DAILY@0700 [facility] Last Admin: 12/23/17 06:29 Dose: 50 mcg Lisinopril (Prinivil) 10 mg PO DAILY [facility] Last Admin: 12/23/17 09:47 Dose: 10 mg Ranitidine HCl (Zantac -) 150 mg PO DAILY [facility] Last Admin: 12/23/17 09:47 Dose: 150 mg - Objective Vital Signs: Vital Signs Temperature 97.8 F 12/23/17 06:00 Pulse Rate 58 L 12/23/17 06:00 Respiratory Rate 16 12/23/17 07:00 Blood Pressure 110/57 12/23/17 06:00 O2 Sat by Pulse Oximetry (%) 95 12/23/17 07:00 Constitutional: Yes: No Distress, Calm, Obese Cardiovascular: Yes: Regular Rate and Rhythm, S1, S2. No: Gallop, Murmur Respiratory: Yes: Regular, CTA Bilaterally. No: Accessory Muscle Use, Rales, Wheezes Extremities: No: Cold Edema: No Neurological: Yes: Alert, Oriented. No: Seizure Psychiatric: No: Agitated Labs: CBC, BMP 12/22/17 06:30 12/22/17 06:30 INR, PTT INR 0.94 (0.82-1.09) 12/21/17 20:30 - ....Imaging EKG: Other (tele: NSR) Assessment/Plan ECG 12/21: NSR, baseline wander artifact. normal axis. no path q's. NSTWA v2 ( unchanged vs prior). q wave in v4 with NSTWA which is new vs prior 07/05 ECG 12/22: same as 12/21 CXR: clear lungs/pleura MPI 2016 (pers): no STs. normal perfusion. nl EF. Echo 2016: nl LVSF. nl RV. nl LA. valve fxn WNL. chest pain: -sx's are non-anginal, occurring at rest and persisting for the past 24 hrs. -trop neg x 2, ECG with nonspecific finding of new q wave in V4 only--? lead positioning. -Sats remain normal (on RA), suspect PO2 on "ABG" was actually venous specimen. continue to observe sats trend -pt is tender to palpation under L breast and along L medial breast margin, i.e. over area of her chief compliant--AND STATES THIS EXACTLY REPRODUCES THE QUALITY OF HER CHIEF COMPLAINT. -she also states the pain quality is same as episode she had few yrs ago, despite 2 negative stress tests since then. -the presence of unremitting pain for 24 hrs with normal cardiac enzymes essentially rules out myocardial ischemic pain. -pain has resolved, remains clinically stable -continue prn NSAIDs -change home ASA regimen to 81 mg only, no need for 325 -ok for discharge from CV p.o.v. HTN: -bp's low to normal here. -cont home MARGO (? for DM renal protection), observe trend HPL: -cont home statin (or dose equivalent) DM: -per hospitalist
--- NOTE | 2017-12-23 12:25 | DS ---
Physical Exam: SUBJECTIVE: Patient seen and examined Patient is comfortable with no acute distress. OBJECTIVE: Vital Signs Temperature 97.8 F 12/23/17 06:00 Pulse Rate 58 L 12/23/17 06:00 Respiratory Rate 16 12/23/17 07:00 Blood Pressure 110/57 12/23/17 06:00 O2 Sat by Pulse Oximetry (%) 95 12/23/17 07:00 PHYSICAL EXAM GENERAL: The patient is awake, alert, and fully oriented, in no acute distress. HEAD: Normal with no signs of trauma. EYES: PERRL, extraocular movements intact, sclera anicteric, conjunctiva clear. ENT: Ears normal, nares patent, oropharynx clear without exudates, moist mucous membranes. NECK: Trachea midline, full range of motion, supple. LUNGS: Breath sounds equal, clear to auscultation bilaterally, no wheezes, no crackles, no accessory muscle use. HEART: Regular rate and rhythm, S1, S2 without murmur, rub or gallop. ABDOMEN: Soft, nontender, nondistended, normoactive bowel sounds, no guarding, no rebound, no hepatosplenomegaly, no masses. EXTREMITIES: 2+ pulses, warm, well-perfused, no edema. NEUROLOGICAL: Cranial nerves II through XII grossly intact. Normal speech, gait not observed. PSYCH: Normal mood, normal affect. SKIN: Warm, dry, normal turgor, no rashes or lesions noted. LABS Laboratory Results - last 24 hr 12/22/17 12/22/17 12/22/17 12:42 17:42 21:12 POC Glucometer 248 114 310 B-Natriuretic Peptide 12/23/17 12/23/17 12/23/17 05:22 05:37 11:27 POC Glucometer 147 279 B-Natriuretic Peptide 91.10 CBCD WBC 6.4 K/mm3 (4.0-10.0) 12/22/17 06:30 RBC 4.13 M/mm3 (3.60-5.2) 12/22/17 06:30 Hgb 11.2 GM/dL (10.7-15.3) 12/22/17 06:30 Hct 34.8 % (32.4-45.2) 12/22/17 06:30 MCV 84.2 fl (80-96) 12/22/17 06:30 MCHC 32.3 g/dl (32.0-36.0) 12/22/17 06:30 RDW 14.5 % (11.6-15.6) 12/22/17 06:30 Plt Count 257 K/MM3 (134-434) 12/22/17 06:30 MPV 8.0 fl (7.5-11.1) 12/22/17 06:30 CMP Sodium 139 mmol/L (136-145) 12/22/17 06:30 Potassium 4.3 mmol/L (3.5-5.1) 12/22/17 06:30 Chloride 103 mmol/L (98-107) 12/22/17 06:30 Carbon Dioxide 28 mmol/L (21-32) 12/22/17 06:30 Anion Gap 8 (8-16) 12/22/17 06:30 BUN 15 mg/dL (7-18) 12/22/17 06:30 Creatinine 0.8 mg/dL (0.55-1.02) 12/22/17 06:30 Creat Clearance w eGFR > 60 (>60) 12/22/17 06:30 Random Glucose 140 mg/dL (74-106) H 12/22/17 06:30 Calcium 8.9 mg/dL (8.5-10.1) 12/22/17 06:30 Total Bilirubin 0.2 mg/dL (0.2-1.0) D 12/22/17 06:30 AST 16 U/L (15-37) 12/22/17 06:30 ALT 21 U/L (12-78) 12/22/17 06:30 Alkaline Phosphatase 83 U/L (45-117) 12/22/17 06:30 Total Protein 7.5 g/dl (6.4-8.2) 12/22/17 06:30 Albumin 3.7 g/dl (3.4-5.0) 12/22/17 06:30 CARDIAC ENZYMES Creatine Kinase 173 IU/L (26-192) 12/21/17 20:30 Troponin I < 0.02 ng/ml (0.00-0.05) 12/22/17 06:30 Current Medications Generic Name Dose Route Start Last Admin Trade Name Freq PRN Reason Stop Dose Admin Aspirin 81 mg 12/22/17 11:26 12/23/17 09:47 Asa - PO 81 mg DAILY@0800 FELTON Administration Atorvastatin Calcium 10 mg 12/22/17 22:00 12/22/17 21:41 Lipitor - PO 10 mg HS FELTON Administration Heparin Sodium (Porcine) 5,000 unit 12/22/17 06:00 12/23/17 06:29 Heparin - SQ 5,000 unit TID FELTON Administration Ibuprofen 400 mg 12/22/17 11:26 Motrin - PO Q6H PRN PAIN Insulin Aspart 1 vial 12/22/17 07:00 12/23/17 11:28 Novolog Vial Sliding Scale - SQ 6 units ACHS FELTON Administration Protocol Levothyroxine Sodium 50 mcg 12/22/17 07:00 12/23/17 06:29 Synthroid - PO 50 mcg DAILY@0700 FELTON Administration Lisinopril 10 mg 12/22/17 10:00 12/23/17 09:47 Prinivil PO 10 mg DAILY FELTON Administration Ranitidine HCl 150 mg 12/22/17 10:00 12/23/17 09:47 Zantac - PO 150 mg DAILY FELTON Administration Home Medications Medication Instructions Recorded Lisinopril [Prinivil] 10 mg PO DAILY 07/19/12 Atorvastatin Ca [Lipitor] 10 mg PO HS 01/21/16 Levothyroxine [Synthroid -] 50 mcg PO DAILY 01/21/16 Metformin HCl 500 mg PO BID 06/30/16 Famotidine [Pepcid -] 20 mg PO DAILY 11/27/16 Aspirin [ASA -] 81 mg PO DAILY@0800 #30 tab.chew 12/23/17 HOSPITAL COURSE: Date of Admission:12/21/17 Date of Discharge: 12/23/17 Acute chest pain TN was rulled out by EKG and Negative Troponins follow with Dr. Parra in 2 weeks , for further w/u and follow. paTIENT IS STABLE FOR DISCHARGE Minutes to complete discharge: 35 Discharge Summary Reason For Visit: ATYPICAL CHEST PAIN Condition: Stable - Instructions Diet, Activity, Other Instructions: Low fat, no sugar diet. Follow up with cheese packer in 2 weeks follow up with your shading painter (Dr. Johansen) within a week period. if you develop chest pain or shortness of breath please go to the nearest emergency. Referrals: Scotty Hoffman MD [Staff Physician] - 2 Weeks Argelia Johansen MD [Staff Physician] - 1 Week Disposition: HOME - Home Medications Comprehensive Discharge Medication List: Ambulatory Orders Lisinopril [Prinivil] 10 mg PO DAILY 07/19/12 Atorvastatin Ca [Lipitor] 10 mg PO HS 01/21/16 Levothyroxine [Synthroid -] 50 mcg PO DAILY 01/21/16 Metformin HCl 500 mg PO BID 06/30/16 Famotidine [Pepcid -] 20 mg PO DAILY 11/27/16 Aspirin [ASA -] 81 mg PO DAILY@0800 #30 tab.chew 12/23/17 This patient is new to me today: No Emergency Visit: Yes ED Registration Date: 12/21/17 Care time: The patient presented to the Emergency Department on the above date and was hospitalized for further evaluation of their emergent condition. Critical Care patient: No - Discharge Referral Referred to [facility] No
[2017-12-23 12:34] VITALS: BP 106/58; PULSE 71; TEMP 98.2
--- NOTE | 2017-12-24 07:04 | EKG ---
Test Reason : Blood Pressure : / mmHG Vent. Rate : 053 BPM Atrial Rate : 053 BPM P-R Int : 216 ms QRS Dur : 084 ms QT Int : 428 ms P-R-T Axes : 041 -05 032 degrees QTc Int : 401 ms SINUS BRADYCARDIA WITH 1ST DEGREE A-V BLOCK POOR R WAVE PROGRESSION WHEN COMPARED WITH ECG OF 21-DEC-2017 20:31, NO SIGNIFICANT CHANGE WAS FOUND CLINICAL CORRELATION IS RECOMMENDED Confirmed by PATRICK MONTES DE OCA, JANNA ([id number]) on 12/22/2017 1:01:22 PM Referred By: Confirmed By:JANNA NGUYEN MD
--- NOTE | 2017-12-24 17:39 | EKG ---
Test Reason : Blood Pressure : / mmHG Vent. Rate : 071 BPM Atrial Rate : 071 BPM P-R Int : 212 ms QRS Dur : 086 ms QT Int : 370 ms P-R-T Axes : 040 -03 036 degrees QTc Int : 402 ms SINUS RHYTHM WITH 1ST DEGREE A-V BLOCK OTHERWISE NORMAL ECG WHEN COMPARED WITH ECG OF 22-DEC-2017 06:05, T WAVE VARIATION Confirmed by SALENA MONTES DE OCA, OLINDA ([id number]) on 12/24/2017 5:38:44 PM Referred By: Zenaida LADD Confirmed By:OLINDA MARTINO MD
== END 2017-12-23 14:49 | disposition home or self-care (01) ==
LOC: JER 20:23 → JERBED 23:39 → J4W 12-22 12:31
PROVIDERS: ADMIT Internal Medicine; ATTEND Internal Medicine
PROC: 3E033GC Introduction of Other Therapeutic Substance into Peripheral Vein, Percutaneous Approach (ICD-10-PCS; principal; 2017-12-21)
PROC: 3E013VG Introduction of Insulin into Subcutaneous Tissue, Percutaneous Approach (ICD-10-PCS; 2017-12-21)
PROC: 3E013GC Introduction of Other Therapeutic Substance into Subcutaneous Tissue, Percutaneous Approach (ICD-10-PCS; 2017-12-21)
PROC: 3E0337Z Introduction of Electrolytic and Water Balance Substance into Peripheral Vein, Percutaneous Approach (ICD-10-PCS; 2017-12-21)
DX: I10 Essential (primary) hypertension (principal); E11.9 Type 2 diabetes mellitus without complications; E78.5 Hyperlipidemia, unspecified; E03.9 Hypothyroidism, unspecified; E83.42 Hypomagnesemia; E66.01 Morbid (severe) obesity due to excess calories; Z68.38 Body mass index [BMI] 38.0-38.9, adult; G47.30 Sleep apnea, unspecified; Z79.82 Long term (current) use of aspirin; Z79.84 Long term (current) use of oral hypoglycemic drugs; Z87.442 Personal history of urinary calculi; Z98.84 Bariatric surgery status; Z96.653 Presence of artificial knee joint, bilateral
CPT/HCPCS: 36415; 36600; 71045-TC; 80053; 80061; 81003; 82550; 82553; 82803; 82962; 83036; 83721; 83735; 83880; 84100; 84443; 84484; 85025; 85610; 87804; 93005; 93010; 96365; 96372; 96375; 99285-25; G0378; J1644

== ENCOUNTER 2018-07-15 11:52 | Day surgery (SDC) | payer OTHER ==
[2018-07-12 09:12] VITALS: BMI 37.3
[2018-07-15 13:44] VITALS: TEMP 97.9
--- NOTE | 2018-07-15 13:54 | OP ---
Operative Note - Note: Operative Date: 07/15/18 Pre-Operative Diagnosis: Left renal stone Operation: Left ESWL Findings: 7 mm mid pole left renal stone Post-Operative Diagnosis: Same as Pre-op Surgeon: Giovanny Patel Anesthesia: Fractional Estimated Blood Loss (mls): 0 Operative Report Dictated: Yes
[2018-07-15] MEDS ORDERED: DEXAMETHASONE SOD PHOSPHATE 4 MG/1 ML VIAL ONE (14:30)
[2018-07-15] MEDS ORDERED: ONDANSETRON 4 MG/2 ML VIAL ONE (14:30)
[2018-07-15 16:10] VITALS: BP 129/69; PULSE 67
--- NOTE | 2018-07-16 08:19 | OP ---
DATE OF OPERATION: 07/15/2018 PREOPERATIVE DIAGNOSIS: Left renal stone. POSTOPERATIVE DIAGNOSIS: Left renal stone. PROCEDURE: Left extracorporeal shock wave lithotripsy. ATTENDING: Deepika Noyola MD ANESTHESIA: Fractional. DESCRIPTION OF OPERATION: The patient was brought in the operating room and placed in supine position on the operating room table. Ultrasonography and fluoroscopy were performed. A 7-mm left mid-pole stone was identified. At this point, anesthesia and preoperative antibiotics were administered to the patient. Shockwave lithotripsy was then started; 2500 impulses at 17 joules of power were administered to the stone with excellent fragmentation under real-time ultrasonography and fluoroscopy. There were no complications noted. The patient tolerated the procedure very well. DEEPIKA NOYOLA M.D. /[id number]
== END 2018-07-15 16:18 | disposition home or self-care (01) ==
LOC: JASU-SURG 11:52
PROVIDERS: ATTEND Urology
PROC: 0TF4XZZ Fragmentation in Left Kidney Pelvis, External Approach (ICD-10-PCS; principal; 2018-07-15 13:15)
DX: N20.0 Calculus of kidney (principal); E11.9 Type 2 diabetes mellitus without complications; Z79.84 Long term (current) use of oral hypoglycemic drugs; I10 Essential (primary) hypertension
CPT/HCPCS: 82962

== ENCOUNTER 2018-09-17 07:12 | Day surgery (SDC) | payer OTHER ==
[2018-09-17 07:52] VITALS: BMI 38.3
[2018-09-17] MEDS ORDERED: TETRACAINE/BENZOCAINE/BUTAMBEN 20 GM SPR TP ONE ×2 (07:59→08:08)
[2018-09-17] MEDS ORDERED: LIDOCAINE HCL/PF 2% SDV 5ML VIAL ONE (08:00)
[2018-09-17] MEDS ORDERED: LIDOCAINE VISCOUS 2% ORAL/TOP 20 ML UNIT-DOSE CUP ONE (08:00)
[2018-09-17 08:34] VITALS: TEMP 97.8
[2018-09-17 08:52] VITALS: PULSE 63
[2018-09-17 12:42] VITALS: BP 128/60
--- NOTE | 2018-09-19 10:47 | OP ---
DATE OF OPERATION: 09/17/2018 SURGEON: Annmarie Fair MD PREOPERATIVE DIAGNOSIS: Weight regain status post vertical sleeve gastrectomy. POSTOPERATIVE DIAGNOSIS: Normal anatomy status post vertical sleeve gastrectomy. No dilation of the gastric pouch or sleeve. PROCEDURE: Upper endoscopy/esophagogastroduodenoscopy. ANESTHESIA: MAC. ESTIMATED BLOOD LOSS: 0. REASON FOR PROCEDURE: This is a 62-year-old female who had a vertical sleeve gastrectomy in the past. She had done very well, but has recently regained the weight. To evaluate for possible dilation of the gastric pouch sleeve, and upper endoscopy was scheduled. The risks and benefits of the procedure were explained. These included bleeding, infection, injury to surrounding structures including the oral cavity, esophagus, GE junction, gastric pouch, and intestine, perforation, stricture, MS, DVT, PE, and some other complications. She understood and signed informed consent. DESCRIPTION OF PROCEDURE: Patient was placed supine in the left lateral decubitus position, and MAC was given by Anesthesia. Time-out was performed. The endoscope was placed into the patients mouth. It was inserted through the esophagus, through the GE junction, and into the gastric pouch up to the level of the pylorus and beyond. The entirety of the gastric pouch and sleeve was inspected. No dilation was noted. There was normal post vertical sleeve gastrectomy anatomy. The endoscope was used to suction the stomach and removed fully intact. Patient tolerated the procedure well and transferred to the recovery room in stable condition. These findings were explained to both her and her daughter, and she was told to follow up with salesperson terrazzo tiles for change of her dietary plan to assist with the weight loss. ANNMARIE FAIR M.D. [id number]
== END 2018-09-17 09:25 | disposition home or self-care (01) ==
LOC: JASU-ENDO 07:12
PROVIDERS: ATTEND Surgery
PROC: 0DJ08ZZ Inspection of Upper Intestinal Tract, Via Natural or Artificial Opening Endoscopic (ICD-10-PCS; principal; 2018-09-17 08:30)
DX: E66.01 Morbid (severe) obesity due to excess calories (principal); Z98.84 Bariatric surgery status; I10 Essential (primary) hypertension; E11.9 Type 2 diabetes mellitus without complications; Z79.84 Long term (current) use of oral hypoglycemic drugs

== ENCOUNTER 2019-06-24 03:28 | Inpatient (IN) | payer OTHER | END 2019-06-26 13:55 | disposition home or self-care (01) | LOC: JER 03:28 → J6S 11:15 ==

== ENCOUNTER 2019-06-29 22:17 | Emergency (ER) | payer OTHER ==
[2019-06-29 22:32] VITALS: BP 120/68; PULSE 73; TEMP 97.7; BMI 32.0
--- NOTE | 2019-06-29 23:32 | PDOC ---
History of Present Illness - General History Source: Patient Exam Limitations: No Limitations - History of Present Illness Initial Comments: 06/29/19 23:31 Patient is 63 year old female with h/o NIDDM, hypertension, kidney stone, diverticulosis/diverticulitis, gastric sleeve brought by daughter for complaint of generalized abdominal pain and nausea. Patient states her symptoms started on 06/22/19 and was evaluated in the emergency room and admitted on diverticulitis. She was placed on IV antibiotics, pain meds and was discharged on Levaquin, Flagyl, Percocet, Zofran. States she has had persistent pain 07/29 , sharp, since discharge now generalized and associated with nausea, gagging, lightheadedness but no vomiting. States she has been in the Percocet and Zofran without relief of symptoms. He has been unable to tolerate any food or liquids. Denies fever, chills, dysuria. She spoke with her doctor and was sent back to the emergency room for repeat CT scan of abdomen and continued treatment for pain and nausea. PMD: Dr. Atkins PMHX: as above PSOCHX: neg etoh, drug, cig ALL: NKDA GENERAL/CONSTITUTIONAL: No fever or chills. No weakness. No weight change. HEAD, EYES, EARS, NOSE AND THROAT: No change in vision. No ear pain or discharge. No sore throat. CARDIOVASCULAR: No chest pain or shortness of breath. RESPIRATORY: No cough, wheezing, or hemoptysis. GASTROINTESTINAL: (+) nausea, vomiting, (-) diarrhea or constipation. No rectal bleeding. GENITOURINARY: No dysuria, frequency, or change in urination. MUSCULOSKELETAL: No joint or muscle swelling or pain. No neck or back pain. SKIN AND BREASTS: No rash or easy bruising. NEUROLOGIC: No headache, vertigo, loss of consciousness, or loss of sensation. PSYCHIATRIC: No depression or anxiety. ENDOCRINE: No increased thirst. No abnormal weight change. HEMATOLOGIC/LYMPHATIC: No anemia, easy bleeding, or history of blood clots. ALLERGIC/IMMUNOLOGIC: No hives or skin allergy. No latex allergy. GENERAL: The patient is awake, alert, and fully oriented, in acute painful distress, intermittently gagging. HEAD: Normal with no signs of trauma. EYES: Pupils equal, round and reactive to light, extraocular movements intact, sclera anicteric, conjunctiva clear. ENT: Ears normal, nares patent, oropharynx clear without exudates. Moist mucous membranes. NECK: Normal range of motion, supple without lymphadenopathy, JVD, or masses. LUNGS: Breath sounds equal, clear to auscultation bilaterally. No wheezes, and no crackles. HEART: Regular rate and rhythm, normal S1 and S2 without murmur, rub. ABDOMEN: Soft, (-) tenderness genernalized, normoactive bowel sounds. No guarding, no rebound. No masses. EXTREMITIES: Normal range of motion, no edema. No clubbing or cyanosis. No cords, erythema, or tenderness. NEUROLOGICAL: Cranial nerves II through XII grossly intact. Normal speech, normal gait. PSYCH: Normal mood, normal affect. SKIN: Warm, Dry, normal turgor, no rashes or lesions noted. <Colten Nickerson - Last Filed: 06/30/19 00:18> <Jeanne Juarez - Last Filed: 06/30/19 04:53> - General Chief Complaint: Pain Stated Complaint: NAUSEA Past History - Past Medical History Anemia: No Asthma: No Cancer: No Cardiac Disorders: No CVA: No COPD: No CHF: No DVT: No Dementia: No Diabetes: Yes (NIDDM) GI Disorders: Yes (diverticulitis) Disorders: Yes (kidney stones) HTN: Yes (ON MEDS A PREVENTION BC OF DIABETES) Hypercholesterolemia: Yes Liver Disease: No Seizures: No Thyroid Disease: Yes (HYPO) - Surgical History Abdominal Surgery: Yes (GASTRIC SLEEVE 04/18/16) Appendectomy: No Cardiac Surgery: No Cholecystectomy: No Gastric Stapling: Yes (bipass) Lung Surgery: No Neurologic Surgery: No Orthopedic Surgery: Yes (RIGHT TKR 06/2016,L Bilateral TKR 11/2016) - Immunization History Immunization Up to Date: Yes - Suicide/Smoking/Psychosocial Hx Smoking Status: No Smoking History: Never smoked Have you smoked in the past 12 months: No Number of Cigarettes Smoked Daily: 0 Hx Alcohol Use: No Drug/Substance Use Hx: No Substance Use Type: None Hx Substance Use Treatment: No <Colten Nickerson - Last Filed: 06/30/19 00:18> <Jeanne Juarez - Last Filed: 06/30/19 04:53> - Past Medical History Allergies/Adverse Reactions: Allergies Allergy/AdvReac Type Severity Reaction Status Date / Time No Known Drug Allergies Allergy Verified 07/15/18 12:21 Home Medications: Ambulatory Orders Lisinopril [Prinivil] 10 mg PO DAILY 07/19/12 Atorvastatin Ca [Lipitor] 10 mg PO HS 01/21/16 Levothyroxine [Synthroid -] 50 mcg PO DAILY 01/21/16 metFORMIN HCL [Metformin HCl] 500 mg PO BID 06/30/16 Famotidine [Pepcid -] 20 mg PO DAILY 11/27/16 Cholecalciferol (Vitamin D3) [Vitamin D3] 2,000 unit PO DAILY 09/17/18 Glipizide 10 mg PO BID 09/17/18 Famotidine [Pepcid] 20 mg PO DAILY #30 tablet 06/25/19 Metronidazole 500 mg PO TID #21 tablet 06/25/19 Ondansetron HCl [Zofran] 4 mg PO DAILY PRN #5 tablet 06/25/19 Oxycodone HCl/Acetaminophen [Percocet 5-325 mg Tablet] 1 tab PO Q4H 3 Days #20 tablet MDD 4 06/25/19 levoFLOXacin [Levaquin -] 500 mg PO DAILY #7 tablet 06/25/19 Cephalexin [Keflex] 500 mg PO TID #21 capsule 06/30/19 Abd/GI Specific PMHX - Complaint Specific PMHX GERD: No GI Ulcer Disease: No <Colten Nickerson - Last Filed: 06/30/19 00:18> *Physical Exam - Vital Signs Last Vital Signs Temp Pulse Resp BP Pulse Ox 97.7 F 73 20 120/68 99 06/29/19 22:30 06/29/19 22:30 06/29/19 22:30 06/29/19 22:30 06/29/19 22:30 <Colten Nickerson - Last Filed: 06/30/19 00:18> - Vital Signs Last Vital Signs Temp Pulse Resp BP Pulse Ox 97.7 F 73 20 120/68 99 06/29/19 22:30 06/29/19 22:30 06/29/19 22:30 06/29/19 22:30 06/29/19 22:30 <Jeanne Juarez - Last Filed: 06/30/19 04:53> Heart Score/ECG Review - ECG Intrepretation Rhythm: Regular Rhythm - Lewellen Lewellen: Normal - P and MD Prolonged MD Interval: 1st Degree Block(>20mils) Prominent R with upright T in V1 (true posterior IN): No Delta Wave(s) Present: No WPW: No - ST and T Early Repolarization: No Non Specific ST-T Wave changes: No - ECG Impressions Normal ECG: Yes Non-specific ST Elevation: No Ischemic Changes: No <Jeanne Juarez - Last Filed: 06/30/19 04:53> ED Treatment Course - LABORATORY CBC & Chemistry Diagram: 06/30/19 00:57 06/30/19 00:57 - ADDITIONAL ORDERS Additional order review: Laboratory Results 06/30/19 06/30/19 06/30/19 02:32 00:57 00:57 PT with INR 12.80 INR 1.08 Sodium Potassium Chloride Carbon Dioxide Anion Gap BUN Creatinine Est GFR (CKD-EPI)AfAm Est GFR (CKD-EPI)NonAf Random Glucose Lactic Acid 1.7 Calcium Total Bilirubin AST ALT Alkaline Phosphatase Total Protein Albumin Urine Color Dk yellow Urine Appearance Clear Urine pH 5.0 Ur Specific [place] 1.027 Urine Protein Negative Urine Glucose (UA) Negative Urine Ketones Trace H Urine Blood Negative Urine Nitrite Positive H Urine Bilirubin Negative Urine Urobilinogen 1.0 Ur Leukocyte Esterase 1+ H Urine WBC (Auto) 1 Urine RBC (Auto) 1 Urine Casts (Auto) 3 U Epithel Cells (Auto) 6.6 Urine Bacteria (Auto) 271.3 06/30/19 00:57 PT with INR INR Sodium 137 Potassium 4.4 Chloride 104 Carbon Dioxide 26 Anion Gap 7 L BUN 14.1 Creatinine 1.1 Est GFR (CKD-EPI)AfAm 61.88 Est GFR (CKD-EPI)NonAf 53.39 Random Glucose 111 H Lactic Acid Calcium 9.2 Total Bilirubin 0.2 AST 42 H ALT 39 Alkaline Phosphatase 88 Total Protein 8.0 Albumin 4.3 Urine Color Urine Appearance Urine pH Ur Specific Florence Urine Protein Urine Glucose (UA) Urine Ketones Urine Blood Urine Nitrite Urine Bilirubin Urine Urobilinogen Ur Leukocyte Esterase Urine WBC (Auto) Urine RBC (Auto) Urine Casts (Auto) U Epithel Cells (Auto) Urine Bacteria (Auto) 06/30/19 00:57 RBC 4.18 MCV 84.3 MCHC 32.6 RDW 15.1 MPV 8.4 Neutrophils % 64.2 Lymphocytes % 24.0 Monocytes % 9.7 Eosinophils % 1.4 Basophils % 0.7 - Medications Given in the ED: ED Medications Discontinued Medications Generic Name Dose Route Start Last Admin Trade Name Mari PRN Reason Stop Dose Admin Hydromorphone HCl 0.5 mg 06/30/19 00:01 06/30/19 00:56 Dilaudid Injection - IVPUSH 06/30/19 00:02 0.5 mg ONCE ONE Administration Famotidine/Sodium Chloride 20 mg in 50 mls @ 100 mls/hr 06/30/19 00:11 00:58 Pepcid 20 Mg Premixed Ivpb - IVPB 06/30/19 00:40 100 mls/hr ONCE ONE Administration Sodium Chloride 1,000 ml 06/30/19 00:02 06/30/19 00:57 Normal Saline - IV 06/30/19 00:03 1,000 ml ONCE ONE Administration <Jeanne Juarez - Last Filed: 06/30/19 04:53> Medical Decision Making - Medical Decision Making 06/29/19 23:31 Patient is 63 year old female with h/o NIDDM, hypertension, kidney stone, diverticulosis/diverticulitis, gastric sleeve brought by daughter for complaint of generalized abdominal pain and nausea. Patient states her symptoms started on 06/22/19 and was evaluated in the emergency room and admitted on diverticulitis. She was placed on IV antibiotics, pain meds and was discharged on Levaquin, Flagyl, Percocet, Zofran. States she has had persistent pain 9/10 , sharp, since discharge now generalized and associated with nausea, gagging, lightheadedness but no vomiting. States she has been in the Percocet and Zofran without relief of symptoms. He has been unable to tolerate any food or liquids. Denies fever, chills, dysuria. She spoke with her doctor and was sent back to the emergency room for repeat CT scan of abdomen and continued treatment for pain and nausea. Persistent abdominal pain with nausea and gagging with diagnosis of diverticulitis ruleout perforation. Labs, Pain meds, antinausea, CT abdomen and pelvis reassess <Colten Nickerson - Last Filed: 06/30/19 00:18> - Medical Decision Making 06/30/19 03:03 labs normal; CT pending. 06/30/19 03:04 Pt has nitrite positive urine. 06/30/19 04:53 Patient Name: JUAN R ATKINS THIS IS A PRELIMINARY REPORT FROM [facility] DATE OF SERVICE: 2019-06-30 03:09:28 IMAGES: [id number] EXAM: CT ABDOMEN AND PELVIS WITH CONTRAST Diverticulosis colon with decreased fat stranding near proximal sigmoid colon compared to 06/24/19 and resolved wall thickening, probably resolving acute diverticulitis. No abscess, bowel obstruction, free fluid or free air. Normal appendix. Sleeve gastrectomy. Unremarkable pancreas and gallbladder. Cystic foci bilateral kidneys. Hepatosplenomegaly. Chronic compression fracture L2 <Jeanne Juarez - Last Filed: 06/30/19 04:53> *DC/Admit/Observation/Transfer <Colten Nickerson - Last Filed: 06/30/19 00:18> - Discharge Dispostion Decision to Admit order: No <Jeanne Juarez - Last Filed: 06/30/19 04:53> Diagnosis at time of Disposition: UTI (urinary tract infection) - Discharge Dispostion Disposition: HOME Condition at time of disposition: Improved - Prescriptions Prescriptions: Cephalexin [Keflex] 500 mg PO TID #21 capsule - Referrals Referrals: Dakotah Puentes MD [Primary Care Provider] - - Patient Instructions Printed Discharge Instructions: Urinary Tract Infection - Post Discharge Activity
[2019-06-30] MEDS ORDERED: HYDROmorphone HCL CARPU-JECT 2 MG/1 ML DISP.SYRIN IVPUSH ONE (00:01)
[2019-06-30] MEDS ORDERED: SODIUM CHLORIDE 0.9% 500 ML INFUS.BAG IV ONE (00:02)
[2019-06-30] MEDS ORDERED: FAMOTIDINE 20 MG/50 ML IVPB 20 MG/50 ML MG IVPB ONE ×2 (00:10→00:11)
[2019-06-30] MEDS ORDERED: HYDROmorphone HCl 2 MG/ML VIAL ONE (00:10)
[2019-06-30 01:12] LABS: BASO % 0.7 % (0-2.0); EOS % 1.4 % (0-4.5); HEMATOCRIT 35.3 % (32.4-45.2); HEMOGLOBIN 11.5 GM/dL (10.7-15.3); MCH 27.5 pg (25.7-33.7); MCHC 32.6 g/dl (32.0-36.0); MEAN CELL VOLUME 84.3 fl (80-96); MEAN PLT VOLUME 8.4 fl (7.5-11.1); MONO % 9.7 % (3.8-10.2); NEUT % 64.2 % (42.8-82.8); PLATELET COUNT 256 K/MM3 (134-434); RBC 4.18 M/mm3 (3.60-5.2); RDW 15.1 % (11.6-15.6); WHITE BLOOD COUNT 6.2 K/mm3 (4.0-10.0)
[2019-06-30 01:24] LABS: INR 1.08 (0.83-1.09); PROTHROMBIN TIME (PATIENT) 12.8 SEC (9.7-13.0)
[2019-06-30 01:38] LABS: ALBUMIN 4.3 g/dl (3.4-5.0); BILIRUBIN,TOTAL 0.2 mg/dL (0.2-1); BLOOD UREA NITROGEN 14.1 mg/dL (7-18); CALCIUM 9.2 mg/dL (8.5-10.1); CREATININE 1.1 mg/dL (0.55-1.3); POTASSIUM 4.4 mmol/L (3.5-5.1)
[2019-06-30 02:50] LABS: EPI CELLS 6.6 /HPF (0-5/HPF); HYALINE CASTS 3 /lpf (0-8); URINE APPEARANCE CLEAR; URINE BACTERIA 271.3 /hpf (NEGATIVE); URINE BILIRUBIN NEGATIVE (NEGATIVE); URINE COLOR DK YELLOW; URINE GLUCOSE (UA) NEGATIVE (NEGATIVE); URINE KETONE TRACE (NEGATIVE); URINE LEUK ESTERASE 1+ (NEGATIVE); URINE NITRITE POSITIVE (NEGATIVE); URINE PROTEIN NEGATIVE (NEGATIVE); URINE RBC 1 /hpf (0-4); URINE WBC 1 /hpf (0-5)
[2019-06-30] MEDS ORDERED: CEFTRIAXONE 1,000 MG in DEXTROSE 5%-WATER - 50 ML IVPB ONE (03:49)
[2019-06-30] MEDS ORDERED: CEFTRIAXONE 1 GM/50 ML BAG ONE (04:00)
--- NOTE | 2019-06-30 11:06 | EKG ---
Test Reason : Blood Pressure : / mmHG Vent. Rate : 062 BPM Atrial Rate : 062 BPM P-R Int : 230 ms QRS Dur : 092 ms QT Int : 418 ms P-R-T Axes : 037 -09 031 degrees QTc Int : 424 ms SINUS RHYTHM WITH 1ST DEGREE A-V BLOCK OTHERWISE NORMAL ECG WHEN COMPARED WITH ECG OF 24-JUN-2019 07:42, NO SIGNIFICANT CHANGE WAS FOUND Confirmed by OLINDA MARTINO MD ([id number]) on 06/30/2019 11:06:04 AM Referred By: Confirmed By:OLINDA MARTINO MD
== END 2019-06-30 05:47 | disposition home or self-care (01) ==
LOC: JER 22:17
PROC: 3E03329 Introduction of Other Anti-infective into Peripheral Vein, Percutaneous Approach (ICD-10-PCS; principal; 2019-06-29)
PROC: 3E033NZ Introduction of Analgesics, Hypnotics, Sedatives into Peripheral Vein, Percutaneous Approach (ICD-10-PCS; 2019-06-29)
PROC: 3E0337Z Introduction of Electrolytic and Water Balance Substance into Peripheral Vein, Percutaneous Approach (ICD-10-PCS; 2019-06-29)
DX: N39.0 Urinary tract infection, site not specified (principal); I10 Essential (primary) hypertension; E78.00 Pure hypercholesterolemia, unspecified; E11.9 Type 2 diabetes mellitus without complications; I44.0 Atrioventricular block, first degree; Z98.84 Bariatric surgery status; Z87.442 Personal history of urinary calculi; Z96.653 Presence of artificial knee joint, bilateral; Z79.84 Long term (current) use of oral hypoglycemic drugs
CPT/HCPCS: 36415; 74177-TC; 80053; 81003; 83605; 85025; 85610; 93005; 93010; 99283-25

== ENCOUNTER 2019-12-15 07:28 | Day surgery (SDC) | payer OTHER ==
[2019-12-11 15:16] VITALS: BMI 40.0
[2019-12-15 07:44] VITALS: TEMP 97.7
[2019-12-15] MEDS ORDERED: MIDAZOLAM HCL 2 MG/2 ML SINGLE DOSE VIAL ONE (09:48)
[2019-12-15] MEDS ORDERED: PROPOFOL 20 ML ONE (10:03)
--- NOTE | 2019-12-15 10:54 | OP ---
Operative Note - Note: Operative Date: 12/15/19 Pre-Operative Diagnosis: Left renal stone Operation: Left renal stone Findings: 3 mm mid and 6 mm lower pole Left renal stone Surgeon: Giovanny Patel Anesthesia: Fractional Estimated Blood Loss (mls): 0 Operative Report Dictated: Yes
[2019-12-15 11:59] VITALS: PULSE 65
[2019-12-15 12:01] VITALS: BP 119/66
--- NOTE | 2019-12-16 08:14 | OP ---
DATE OF OPERATION: 12/15/2019 PREOPERATIVE DIAGNOSIS: Left renal stone. POSTOPERATIVE DIAGNOSIS: Left renal stone. PROCEDURE PERFORMED: Left extracorporeal shock wave lithotripsy. SURGEON: Giovanny Soto MD ANESTHESIA: Fractional. DESCRIPTION OF PROCEDURE: The patient was brought to the operating room and placed in the supine position on the operating room table. Ultrasonography and fluoroscopy were performed. Two stones in the left kidney were seen on ultrasonography and fluoroscopy, a 6-mm lower pole stone and a 3-mm mid pole stone. Extracorporeal shock wave lithotripsy was then started, after anesthesia and preoperative antibiotics were administered; 2500 impulses were administered to the 6-mm stone at 18 joules of power, and 500 impulses at 18 joules of power were administered to the 3-mm stone. No complications were noted. The stone fragmented well. DISPOSITION: The patient was sent to the recovery room. Brian [id number]
== END 2019-12-15 12:01 | disposition home or self-care (01) ==
LOC: JASU-SURG 07:28
PROVIDERS: ATTEND Urology
PROC: 0TF4XZZ Fragmentation in Left Kidney Pelvis, External Approach (ICD-10-PCS; principal; 2019-12-15 09:30)
DX: N20.0 Calculus of kidney (principal); E11.9 Type 2 diabetes mellitus without complications; I10 Essential (primary) hypertension; Z79.84 Long term (current) use of oral hypoglycemic drugs; Z98.84 Bariatric surgery status
CPT/HCPCS: 82962

== ENCOUNTER 2020-07-14 11:24 | Emergency (ER) | payer OTHER ==
[2020-07-14 11:37] VITALS: PULSE 71; TEMP 98.2; BMI 38.5
--- NOTE | 2020-07-14 12:06 | PDOC ---
Documentation entered by Aly Chacko SCRIBE, acting as scribe for Derik Rubio MD. Derik Rubio MD: This documentation has been prepared by the yumikoibe, Aly Chacko SCRIBE, under my direction and personally reviewed by me in its entirety. I confirm that the documentation accurately reflects all work, treatment, procedures, and medical decision making performed by me. History of Present Illness - General Chief Complaint: Injury Stated Complaint: RT WRIST INJURY Time Seen by Provider: 07/14/20 11:50 History Source: Patient Exam Limitations: Language Barrier - History of Present Illness Initial Comments: 07/14/20 11:56 The patient is a 64 year old female with a significant past medical history of IDDM, hypertension, kidney stone, diverticulosis/diverticulitis, gastric sleeve who presents to the emergency department, [facility], for evaluation of right arm pain s/p a fall today. The patient reports missing a step causing her to fall outside of her house today and land on her R arm. Denies headstrike/LOC. Denies any other injuries. EMS applied a splint to her right arm en route. The patient denies head/neck pain, head trauma, and LOC. The patient denies chest/abdominal/back pain, cough, and shortness of breath. Denies fever, chills, nausea, vomiting, and/or any GI symptoms. Denies any symptoms. Denies any other symptoms. Allergies: NKDA Social Hx: None reported Surgical Hx: Right TKR 06/2016,L Bilateral TKR 11/2016 PCP: Dr. Atkins Past History - Medical History Allergies/Adverse Reactions: Allergies Allergy/AdvReac Type Severity Reaction Status Date / Time No Known Drug Allergies Allergy Verified 07/15/20 17:19 Home Medications: Ambulatory Orders Lisinopril [Prinivil] 10 mg PO DAILY 07/19/12 Atorvastatin Ca [Lipitor] 10 mg PO HS 01/21/16 Levothyroxine [Synthroid -] 50 mcg PO DAILY 01/21/16 metFORMIN HCL [Metformin HCl] 500 mg PO BID 06/30/16 Cholecalciferol (Vitamin D3) [Vitamin D3] 2,000 unit PO DAILY 09/17/18 Oxycodone HCl 5 mg PO QID PRN #16 capsule MDD 4 tabs 07/14/20 Aspirin [ASA -] 81 mg PO DAILY 07/15/20 Dulaglutide [Trulicity] 1.5 mg SQ WEEKLY 07/15/20 Omeprazole Magnesium 40 mg PO DAILY 07/15/20 Anemia: No Asthma: No Cancer: No Cardiac Disorders: No CVA: No COPD: No CHF: No DVT: No Dementia: No Diabetes: Yes (NIDDM) GI Disorders: Yes (diverticulitis) Disorders: Yes (kidney stones) HTN: Yes (ON MEDS A PREVENTION BC OF DIABETES) Hypercholesterolemia: Yes Liver Disease: No Seizures: No Thyroid Disease: Yes (HYPO) - Surgical History Abdominal Surgery: Yes (GASTRIC SLEEVE 04/18/16) Appendectomy: No Cardiac Surgery: No Cholecystectomy: No Gastric Stapling: Yes (bipass) Lung Surgery: No Neurologic Surgery: No Orthopedic Surgery: Yes (RIGHT TKR 06/2016,L Bilateral TKR 11/2016) - Immunization History Immunization Up to Date: Yes - Psycho-Social/Smoking History Smoking Status: No Smoking History: Never smoked Have you smoked in the past 12 months: No Number of Cigarettes Smoked Daily: 0 - Substance Abuse Hx (Audit-C & DAST Scrn) How often the patient has a drink containing alcohol: Never Score: In Men: 4 or > Positive; In Women: 3 or > Positive: 0 Screen Result (Pos requires Nsg. Audit-10AR): Negative Review of Systems - Review of Systems Able to Perform ROS?: Yes Comments:: 07/14/20 11:57 GENERAL/CONSTITUTIONAL: No fever or chills. No weakness. HEAD, EYES, EARS, NOSE AND THROAT: No change in vision. No ear pain or discharge. No sore throat. CARDIOVASCULAR: No chest pain, no shortness of breath, no loss of consciousness RESPIRATORY: No cough, wheezing, or hemoptysis. GASTROINTESTINAL: No nausea, vomiting, diarrhea or constipation. GENITOURINARY: No dysuria, frequency, or change in urination. MUSCULOSKELETAL: +R arm pain. No joint or muscle swelling or pain. No neck or back pain. SKIN: No rash NEUROLOGIC: No vertigo, no change in strength/sensation. ENDOCRINE: No increased thirst. No abnormal weight change. HEMATOLOGIC/LYMPHATIC: No anemia, easy bleeding, or history of blood clots. ALLERGIC/IMMUNOLOGIC: No hives or skin allergy. All Other Systems: Reviewed and Negative *Physical Exam - Vital Signs Last Vital Signs Temp Pulse Resp BP Pulse Ox 98.2 F 71 18 121/54 L 100 07/14/20 11:33 07/14/20 11:33 07/14/20 11:33 07/14/20 11:33 07/14/20 11:33 - Physical Exam 07/14/20 11:56 "GENERAL: Awake, alert, and fully oriented, in no acute distress. HEAD: No signs of trauma EYES: PERRLA, EOMI, sclera anicteric, conjunctiva clear ENT: Auricles normal inspection, hearing grossly normal, nares patent, oropharynx clear without exudates. Moist mucosa NECK: Nontender, no stepoffs, Normal ROM, supple, no lymphadenopathy, JVD, or masses LUNGS: Breath sounds equal, clear to auscultation bilaterally. No wheezes, and no crackles HEART: Regular rate and rhythm, normal S1 and S2, no murmurs, rubs or gallops ABDOMEN: Soft, nontender, normoactive bowel sounds. No guarding, no rebound. No masses EXTREMITIES: + TTP and swelling to R wrist, distal pulses and sensation intact NEUROLOGICAL: Cranial nerves II through XII intact. 5/5 strength and sensation in all extremities, Normal speech, normal gait, normal cerebellar function SKIN: Warm, Dry, normal turgor, no rashes or lesions noted." Procedures - Splinting Splint Location: Right: Wrist Pre-Proc Neuro Vasc Exam: normal Hand-Made Type: orthoglass Splint Type: Yes: Short Arm Post-Proc Neuro Vasc Exam: normal Jeramie Bandage: yes, 3" Medical Decision Making - Medical Decision Making 07/14/20 12:07 64 F with R wrist pain s/p fall. - XR RUE - Pain control 07/14/20 13:49 XR shows wrist fx Discussed with Dr. Martinez, who recommends short arm splint and f/u in office tomorrow. Pt splinted' Pt reports good pain control Pt is well appearing, with normal vitals. Clinically stable for DC at this time. I discussed the physical exam findings, ancillary test results and final diagnoses with the patient. I answered all of the patient's questions. The patie nt was satisfied with the care received and felt comfortable with the discharge plan and treatment plan. The patient agrees to follow up with the primary care physician within 24-72 hours. Discharge - Discharge Information Problems reviewed: Yes Clinical Impression/Diagnosis: Wrist fracture, Fall, Wrist pain Condition: Stable Disposition: HOME - Additional Discharge Information Prescriptions: Oxycodone HCl 5 mg PO QID PRN #16 capsule MDD 4 tabs PRN Reason: Pain - Follow up/Referral Referrals: Lindsey Atkins MD [Primary Care Provider] - Garrett Martinez MD [Staff Physician] - - Patient Discharge Instructions Patient Printed Discharge Instructions: DI for Wrist Fracture, How to Prevent Falls Additional Instructions: Dr. Martinez is expecting you in his office tomorrow. Please call the number provided to confirm your appointment. Keep your arm in the splint at all times. Keep it elevated as much as possible to reduce swelling. Take tylenol or motrin as needed for pain. You can also take one oxycodone every 6 hours as needed for severe pain. If you experience worsening pain, swelling, numbness, or any other concerning symptoms, return to the ER immediately. - Post Discharge Activity
[2020-07-14] MEDS ORDERED: morphine SULFATE 4 MG/ML VIAL ONE ×2 (12:16→13:18)
[2020-07-14] MEDS ORDERED: morphine CARPU-JECT 4 MG/1 ML DISP.SYRIN IM ONE ×2 (12:16→13:15)
[2020-07-14] MEDS ORDERED: morphine CARPU-JECT 4 MG/1 ML DISP.SYRIN IVPUSH ONE (13:12)
[2020-07-14 13:20] VITALS: BP 128/64
== END 2020-07-14 14:01 | disposition home or self-care (01) ==
LOC: JER 11:24
PROC: 2W3CX1Z Immobilization of Right Lower Arm using Splint (ICD-10-PCS; principal; 2020-07-14)
PROC: 3E023NZ Introduction of Analgesics, Hypnotics, Sedatives into Muscle, Percutaneous Approach (ICD-10-PCS; 2020-07-14)
PROC: 3E033GC Introduction of Other Therapeutic Substance into Peripheral Vein, Percutaneous Approach (ICD-10-PCS; 2020-07-14)
DX: S62.91XA Unspecified fracture of right hand, initial encounter for closed fracture (principal)
CPT/HCPCS: 71045-TC-FY; 73090-TC-RT-FY; 99285-25

== ENCOUNTER 2020-07-20 06:21 | Day surgery (SDC) | payer OTHER ==
[2020-07-15 17:30] VITALS: BMI 37.0
[2020-07-20] MEDS ORDERED: MIDAZOLAM HCL 2 MG/2 ML SINGLE DOSE VIAL ONE (06:55)
[2020-07-20] MEDS ORDERED: ROPIVACAINE HCL 0.5% 30ML VIAL ONE ×2 (06:55→07:48)
[2020-07-20] MEDS ORDERED: DEXAMETHASONE SOD PHOSPHATE/PF 10 MG/ML SDV ONE (07:06)
[2020-07-20] MEDS ORDERED: SUCCINYLCHOLINE CHLORIDE 200 MG/10 ML SYRINGE ONE (07:20)
[2020-07-20] MEDS ORDERED: PROPOFOL 20 ML ONE ×3 (07:20→08:40)
[2020-07-20] MEDS ORDERED: BUPIVACAINE HCL/PF 0.25% (2.5MG/ML) 10 ML VIAL ONE (07:26)
[2020-07-20] MEDS ORDERED: ceFAZolin SODIUM 1 GM VIAL ONE (07:58)
[2020-07-20] MEDS ORDERED: GUM MASTIC/STORAX/MSAL/ALCOHOL 1 DRP DROPSBTL MC ONE (08:52)
--- NOTE | 2020-07-20 09:05 | OP ---
DATE OF OPERATION: 07/20/2020 PREOPERATIVE DIAGNOSIS: Right comminuted intraarticular displaced distal radius fracture. POSTOPERATIVE DIAGNOSIS: Right comminuted intraarticular displaced distal radius fracture. OPERATIVE PROCEDURE: 1. Open reduction internal fixation of right comminuted intraarticular displaced distal radius fracture with internal fixation of 3 or more fragments. 2. Right brachioradialis tenotomy. SURGEON: Alondra Massey MD OPTO MECHANICAL TECHNICIAN: STEPHANIE Daniels ANESTHESIA: Regional. COMPLICATIONS: None. ESTIMATED BLOOD LOSS: Minimal. INDICATIONS FOR PROCEDURE: A 64-year-old female with the above finding, indicated for operative treatment. Risks, benefits and alternatives were discussed with both her and her family at length. Proper informed consent was obtained. PROCEDURE: After proper identification of patient and correct operative site, patient was brought to the operating room, placed supine on the table. Prominences were well padded. Regional anesthesia had been given by the anesthesiologist and was satisfactory for the procedure. Intravenous antibiotics were given. Timeout procedure was performed. Right upper extremity was prepped and draped in usual sterile fashion. Well-padded tourniquet was placed with a sterile prep. Esmarch bandage to exsanguinate the right upper extremity. Tourniquet was inflated to 250 mmHg. Longitudinal incision made over the flexor carpi radialis tendon. Incision was taken sharply through skin with blunt and sharp dissection through subcutaneous tissue. The flexor carpi radialis tendon along with the contents of the carpal canal was bluntly and gently retracted in an ulnarward direction for the remainder of the procedure. Pronator quadratus was divided and elevated off the distal radius. Slightly comminuted intraarticular fracture was noted. Reduction was performed and held with an Arthrex distal radius locking plate. Once this was applied, final radiographs were taken confirming proper reduction as well as placement and sizing of all hardware. Distal radioulnar joint and scapholunate intervals were found to be stable. The wound was irrigated and repaired in layers including the pronator quadratus with 4-0 Vicryl and 4-0 Monocryl sutures. Steri-Strips and sterile dressings were applied. A volar wrist splint was placed. Patient was reversed from anesthesia and brought to recovery room in stable condition. She tolerated procedure well. Rainer Agustin, the logging assistant, was integral throughout the procedure. Procedure would not have been able to be performed if his skill in holding reduction while plate was applied was not available. He was integral throughout the remainder of the procedure as well. ALONDRA MASSEY M.D. JOVANI/[id number]
[2020-07-20] MEDS ORDERED: ONDANSETRON 4 MG/2 ML VIAL IVPUSH PRN (09:09)
[2020-07-20] MEDS ORDERED: oxyCODONE HCL 5 MG TABLET PO PRN (09:09)
[2020-07-20] MEDS ORDERED: LACTATED RINGERS SOLUTION 1,000 ML IV SCH (09:15)
[2020-07-20 10:25] VITALS: TEMP 97.9
[2020-07-20 11:16] VITALS: BP 126/72; PULSE 71
== END 2020-07-20 11:18 | disposition home or self-care (01) ==
LOC: FASU 06:21
PROVIDERS: ATTEND Orthopaedic Surgery Hand Surgery
PROC: 0PSH04Z Reposition Right Radius with Internal Fixation Device, Open Approach (ICD-10-PCS; principal; 2020-07-20 08:09)
DX: S52.531A Colles' fracture of right radius, initial encounter for closed fracture (principal); X58.XXXA Exposure to other specified factors, initial encounter; Y93.9 Activity, unspecified; Y92.9 Unspecified place or not applicable
CPT/HCPCS: 25609; C1713; 73110-TC-RT-FY; 82962; 94760

== ENCOUNTER 2020-08-23 04:12 | Day surgery (SDC) | payer OTHER ==
[2020-08-23] MEDS ORDERED: MIDAZOLAM HCL 2 MG/2 ML SINGLE DOSE VIAL ONE (09:05)
--- NOTE | 2020-08-23 09:33 | OP ---
Operative Note - Note: Operative Date: 08/23/20 Pre-Operative Diagnosis: Right renal stone Operation: Right ESWL Findings: 5 mm mid pole right renal stone Post-Operative Diagnosis: Same as Pre-op Surgeon: Giovanny Patel Anesthesia: Regional Estimated Blood Loss (mls): 0 Operative Report Dictated: Yes
[2020-08-23 11:32] VITALS: BP 132/79; PULSE 75; TEMP 98
--- NOTE | 2020-08-23 12:39 | OP ---
DATE OF OPERATION: 08/23/2020 PREOPERATIVE DIAGNOSIS: Right renal stone. POSTOPERATIVE DIAGNOSIS: Right renal stone. PROCEDURE: Right extracorporeal shock wave lithotripsy. ATTENDING: Deepika Patel MD ANESTHESIA: Fractional. OPERATION: Patient was brought into the operating room, placed in a supine position on the operating room table. Ultrasonography and fluoroscopy were performed. A 5-mm right midpole stone was identified. Anesthesia was then administered. Shock wave lithotripsy was then started; 2500 impulses at 17 joules of power were administered to the stone with excellent fragmentation noted under real-time ultrasonography and fluoroscopy. No complications were noted. The patient tolerated the procedure very well. The disposition of the patient was to the recovery room. DEEPIKA NOYOLA M.D. /[id number]
== END 2020-08-23 11:10 | disposition home or self-care (01) ==
LOC: JASU-SURG 04:12
PROVIDERS: ATTEND Urology
PROC: 0TF3XZZ Fragmentation in Right Kidney Pelvis, External Approach (ICD-10-PCS; principal; 2020-08-23 09:10)
DX: N20.0 Calculus of kidney (principal); I10 Essential (primary) hypertension; E11.9 Type 2 diabetes mellitus without complications
CPT/HCPCS: 82962

== ENCOUNTER 2022-08-06 16:25 | Emergency (ER) | payer MEDICARE, OTHER ==
[2022-08-06 16:59] VITALS: BP 115/75; PULSE 74; RESP 17; TEMP 98; BMI 36.1
== END 2022-08-06 18:29 | disposition home or self-care (01) ==
LOC: JER 16:25 → MERGE 16:25 → JER 18:29
DX: M79.671 Pain in right foot (principal)
CPT/HCPCS: 73630-TC-RT-FY; 99283-25

== ENCOUNTER 2022-12-01 04:05 | Day surgery (SDC) | payer MEDICARE, OTHER ==
[2022-11-17 16:51] VITALS: BMI 35.2
[~2022-12-01 04:05] MED LIST: DEXAMETHASONE SOD PHOSPHATE 10 MG/1 ML VIAL IVPUSH ONE; IOHEXOL 180 MG/1 ML ML IJ ONE; LIDOCAINE 1% P/F 10 MG/ML VIAL SNB ONE
[2022-12-01 09:33] VITALS: RESP 20
[2022-12-01] MEDS ORDERED: IOHEXOL 180 MG/1 ML ML IJ ONE (11:35)
[2022-12-01] MEDS ORDERED: LIDOCAINE 1% P/F 10 MG/ML VIAL SNB ONE (11:35)
[2022-12-01] MEDS ORDERED: DEXAMETHASONE SOD PHOSPHATE 10 MG/1 ML VIAL IVPUSH ONE (11:35)
[2022-12-01 11:53] VITALS: BP 107/63; PULSE 67; TEMP 98.4
== END 2022-12-01 12:04 | disposition home or self-care (01) ==
LOC: JASU-SURG 04:05
PROVIDERS: ATTEND Pain Medicine Pain Medicine
PROC: 3E0R3BZ Introduction of Anesthetic Agent into Spinal Canal, Percutaneous Approach (ICD-10-PCS; 2022-12-01)
PROC: 3E0R33Z Introduction of Anti-inflammatory into Spinal Canal, Percutaneous Approach (ICD-10-PCS; principal; 2022-12-01 10:30)
DX: M48.061 Spinal stenosis, lumbar region without neurogenic claudication (principal); M54.16 Radiculopathy, lumbar region
CPT/HCPCS: 76000-TC-FY; J1100

== ENCOUNTER 2022-12-16 17:05 | Emergency (ER) | payer MEDICARE, OTHER ==
[2022-12-16 17:10] VITALS: RESP 18; BMI 36.5
[2022-12-16] MEDS ORDERED: ACETAMINOPHEN 1000 MG/100 ML BAG IVPB ONE (18:16)
[2022-12-16 18:45] LABS: HEMATOCRIT 35.5 % (32.4-45.2); MCH 24.2 pg (25.7-33.7); MCHC 31.1 g/dl (32.0-36.0); MEAN CELL VOLUME 77.7 fl (80-96); MEAN PLT VOLUME 7.4 fl (7.5-11.1); PLATELET COUNT 279 10^3/uL (134-434); RBC 4.57 M/mm3 (3.60-5.2); RDW 16.7 % (11.6-15.6); WHITE BLOOD COUNT 13.3 K/mm3 (4.0-10.0)
[2022-12-16 18:52] LABS: INR 0.96 (0.83-1.09)
[2022-12-16 18:55] LABS: ACTIVATED PTT 28.8 SECONDS (25.2-36.5)
[2022-12-16 19:06] LABS: CALCIUM 9.8 mg/dL (8.5-10.1)
[2022-12-16 19:08] LABS: ALBUMIN 3.6 g/dl (3.4-5.0); BLOOD UREA NITROGEN 19.6 mg/dL (7-18)
[2022-12-16 19:11] LABS: TOT PROT 7.7 g/dl (6.4-8.2)
[2022-12-16 19:12] LABS: BILIRUBIN,TOTAL 0.2 mg/dL (0.2-1)
[2022-12-16] MEDS ORDERED: LACTATED RINGERS SOLUTION 1000 ML INFUS.BAG IV ONE (19:31)
[2022-12-16] MEDS ORDERED: IBUPROFEN 600 MG TABLET (FP) PO ONE (20:59)
[2022-12-16] MEDS ORDERED: ACETAMINOPHEN INJECTION 100 ML IVPB ONE (21:08)
[2022-12-16] MEDS ORDERED: IBUPROFEN 400 MG TABLET (FP) PO ONE (22:13)
[2022-12-16 23:03] VITALS: BP 106/56; PULSE 83; TEMP 98.1
[2022-12-16 23:04] LABS: URINE APPEARANCE CLEAR; URINE BILIRUBIN NEGATIVE (NEGATIVE); URINE COLOR YELLOW; URINE GLUCOSE (UA) 3+ (NEGATIVE); URINE KETONE NEGATIVE (NEGATIVE); URINE LEUK ESTERASE NEGATIVE (NEGATIVE); URINE NITRITE NEGATIVE (NEGATIVE); URINE PROTEIN NEGATIVE (NEGATIVE); URINE UROBILINOGEN 0.2 mg/dL (0.2-1.0)
== END 2022-12-17 00:44 | disposition home or self-care (01) ==
LOC: JER 17:05
PROC: 3E0333Z Introduction of Anti-inflammatory into Peripheral Vein, Percutaneous Approach (ICD-10-PCS; principal; 2022-12-16)
DX: M62.81 Muscle weakness (generalized) (principal)
CPT/HCPCS: 0241U-QW; 36415; 71046-TC-FY; 72131-TC; 72158-TC; 74176-TC; 80053; 81003; 82962; 85027; 85610; 85730; 87086; 93005; 93010; 93970-TC; 99291

== ENCOUNTER 2023-01-02 04:11 | Day surgery (SDC) | payer MEDICARE, OTHER ==
[2022-12-28 16:17] VITALS: BMI 35.2
[2023-01-02] MEDS ORDERED: DEXAMETHASONE SOD PHOSPHATE 4 MG/1 ML VIAL ONE (07:24)
[2023-01-02] MEDS ORDERED: LIDOCAINE HCL/PF 1% SDV 5ML VIAL ONE (07:24)
[2023-01-02] MEDS ORDERED: DEXAMETHASONE SOD PHOSPHATE 10 MG/1 ML VIAL ONE (07:24)
[2023-01-02 09:34] VITALS: RESP 18
[2023-01-02] MEDS ORDERED: LIDOCAINE HCL 1% PRESERVATIVE FREE - 30ML VIAL IJ ONE ×2 (10:31→10:34)
[2023-01-02] MEDS ORDERED: DEXAMETHASONE SOD PHOSPHATE 10 MG/1 ML VIAL IVPUSH ONE (10:34)
[2023-01-02 10:57] VITALS: TEMP 97
[2023-01-02] MEDS ORDERED: ACETAMINOPHEN 500 MG TABLET (FP) ONE (11:04)
[2023-01-02 11:30] VITALS: PULSE 72
[2023-01-02] MEDS ORDERED: ACETAMINOPHEN 500 MG TABLET (FP) PO ONE (11:30)
[2023-01-02 11:31] VITALS: BP 150/84
== END 2023-01-02 11:32 | disposition home or self-care (01) ==
LOC: JASU-SURG 04:11
PROVIDERS: ATTEND Pain Medicine Pain Medicine
PROC: 3E0R3BZ Introduction of Anesthetic Agent into Spinal Canal, Percutaneous Approach (ICD-10-PCS; 2023-01-02)
PROC: 3E0R33Z Introduction of Anti-inflammatory into Spinal Canal, Percutaneous Approach (ICD-10-PCS; principal; 2023-01-02 10:30)
DX: M47.816 Spondylosis without myelopathy or radiculopathy, lumbar region (principal); M48.061 Spinal stenosis, lumbar region without neurogenic claudication
CPT/HCPCS: 76000-TC-FY; J1100

== ENCOUNTER 2023-03-19 04:00 | Day surgery (SDC) | payer MEDICARE, OTHER ==
[2023-03-16 10:21] VITALS: BMI 35.2
[2023-03-19 10:08] VITALS: RESP 18
[2023-03-19 11:14] VITALS: BP 119/67; PULSE 68; TEMP 98
== END 2023-03-19 11:08 | disposition home or self-care (01) ==
LOC: JASU-SURG 04:00
PROVIDERS: ATTEND Urology
PROC: 0TF3XZZ Fragmentation in Right Kidney Pelvis, External Approach (ICD-10-PCS; principal; 2023-03-19 10:30)
DX: N20.0 Calculus of kidney (principal)
CPT/HCPCS: 82962

== ENCOUNTER 2024-12-10 13:23 | Emergency (ER) | payer MEDICARE, OTHER ==
[2024-12-10 13:33] VITALS: RESP 16; TEMP 98.4; BMI 37.1
[2024-12-10] MEDS ORDERED: ACETAMINOPHEN INJECTION 100 ML ONE (15:14)
[2024-12-10] MEDS: ACETAMINOPHEN 1000 MG/100 ML BAG IVPB ONE (15:19)
[2024-12-10 15:24] LABS: HEMATOCRIT 31.9 % (32.4-45.2); MCH 23.6 pg (25.7-33.7); MCHC 31.4 g/dl (32.0-36.0); MEAN CELL VOLUME 75.3 fl (80-96); MEAN PLT VOLUME 7.4 fl (7.5-11.1); PLATELET COUNT 242 10^3/uL (134-434); RBC 4.24 M/mm3 (3.60-5.2); RDW 17.7 % (11.6-15.6); WHITE BLOOD COUNT 5.3 K/mm3 (4.0-10.0)
[2024-12-10 15:44] LABS: POTASSIUM 4.9 mmol/L (3.5-5.1)
[2024-12-10 15:46] LABS: BLOOD UREA NITROGEN 14.2 mg/dL (7-18); CALCIUM 9.9 mg/dL (8.5-10.1)
[2024-12-10 15:49] LABS: CREATININE 0.9 mg/dL (0.55-1.3)
[2024-12-10 15:51] LABS: ANISOCYTOSIS 1+; BILIRUBIN,TOTAL 0.2 mg/dL (0.2-1); MACROCYTOSIS 0; TOT PROT 7.8 g/dl (6.4-8.2)
[2024-12-10] MEDS ORDERED: morphine SULFATE 4 MG/ML VIAL ONE (16:52)
[2024-12-10 16:54] LABS: PH,URINE 5.5 (5.0-8.0); URINE APPEARANCE CLEAR; URINE BILIRUBIN NEGATIVE (NEGATIVE); URINE COLOR YELLOW; URINE GLUCOSE (UA) 3+ (NEGATIVE); URINE KETONE NEGATIVE (NEGATIVE); URINE LEUK ESTERASE NEGATIVE (NEGATIVE); URINE NITRITE NEGATIVE (NEGATIVE); URINE PROTEIN TRACE (NEGATIVE); URINE UROBILINOGEN 0.2 mg/dL (0.2-1.0)
[2024-12-10] MEDS: morphine CARPU-JECT 4 MG/1 ML DISP.SYRIN IVPUSH ONE (17:00)
[2024-12-10 18:41] VITALS: BP 126/63; PULSE 62
== END 2024-12-10 19:09 | disposition home or self-care (01) ==
LOC: JER 13:23
PROC: 3E033NZ Introduction of Analgesics, Hypnotics, Sedatives into Peripheral Vein, Percutaneous Approach (ICD-10-PCS; principal; 2024-12-10)
PROC: 3E033NZ Introduction of Analgesics, Hypnotics, Sedatives into Peripheral Vein, Percutaneous Approach (ICD-10-PCS; 2024-12-10)
DX: M54.50 Low back pain, unspecified (principal)
CPT/HCPCS: 36415; 74176-TC; 80053; 81003; 85025; 87086; 99285-25; J0131